=== PATIENT | female | born 1955 | race Caucasian/White ===

== ENCOUNTER 2024-03-09 08:54 | Emergency (ER) | payer MEDICARE ==
--- NOTE | 2024-03-09 09:44 | ED ---
Dizziness HPI - General Chief Complaint: Dizziness Stated Complaint: Nausea,Dizziness Time Seen by Provider: 03/09/24 09:11 Source: patient, RN notes reviewed Mode of arrival: ambulatory Limitations: no limitations - History of Present Illness Initial Comments: 68-year-old female presents emergency department chief complaint of nausea, weakness. She states that she has not felt well the last few weeks she states that she felt nauseated that she could not eat she states she was seen in urgent care was told that her thyroid function was off but states she is on medications for this. Patient denies any significant chest pain shortness of breath URI symptoms. 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 - Related Data Previous Rx's Medication Instructions Recorded Ketorolac [Toradol] 10 mg PO Q8HR #15 tab 03/09/24 Ondansetron Odt [Zofran Odt] 4 mg PO Q8HR PRN #14 tab 03/09/24 Tamsulosin [Flomax] 0.4 mg PO DAILY #7 cap 03/09/24 Allergies Allergy/AdvReac Type Severity Reaction Status Date / Time No Known Allergies Allergy Verified 03/09/24 09:14 Review of Systems ROS Statement: Those systems with pertinent positive or pertinent negative responses have been documented in the HPI. ROS Other: All systems not noted in ROS Statement are negative. Past Medical History Past Medical History: Hyperlipidemia, Thyroid Disorder History of Any Multi-Drug Resistant Organisms: None Reported Past Surgical History: Orthopedic Surgery, Tonsillectomy Additional Past Surgical History / Comment(s): ganglian cyst left wrist, plates rt leg Past Psychological History: No Psychological Hx Reported Smoking Status: Never smoker Past Alcohol Use History: Occasional Past Drug Use History: None Reported General Exam Limitations: no limitations General appearance: alert, in no apparent distress Head exam: Present: atraumatic, normocephalic, normal inspection Eye exam: Present: normal appearance, PERRL, EOMI. Absent: scleral icterus, conjunctival injection, periorbital swelling ENT exam: Present: normal exam, normal oropharynx, mucous membranes moist Neck exam: Present: normal inspection, full ROM. Absent: tenderness, meningismus, lymphadenopathy Respiratory exam: Present: normal lung sounds bilaterally. Absent: respiratory distress, wheezes, rales, rhonchi, stridor Cardiovascular Exam: Present: regular rate, normal rhythm, normal heart sounds. Absent: systolic murmur, diastolic murmur, rubs, gallop, clicks GI/Abdominal exam: Present: soft, normal bowel sounds. Absent: distended, tenderness, guarding, rebound, rigid Neurological exam: Present: alert, oriented X3, CN II-XII intact, reflexes normal. Absent: motor sensory deficit Course Vital Signs 03/09/24 03/09/24 03/09/24 09:10 12:30 13:16 Temperature 98.4 F Pulse Rate 99 Pulse Rate [ 69 Apical] Respiratory 16 18 18 Rate Blood Pressure 100/70 Blood Pressure 127/79 [Right Arm] O2 Sat by Pulse 97 Oximetry Medical Decision Making - Medical Decision Making Was pt. sent in by a medical professional or institution (, PA, IMAGING ENGINEER, urgent care, hospital, or [place] [facility] facility...) When possible be specific @ -No Did you speak to anyone other than the patient for history (EMS, parent, family, police, friend...)? What history was obtained from this source @ -No Did you review nursing and triage notes (agree or disagree)? Why? @ -I reviewed and agree with nursing and triage notes Were old charts reviewed (outside hosp., previous admission, EMS record, old EKG, old radiological studies, urgent care reports/EKG's, [place] health care facility records)? Report findings @ -No old charts were reviewed Differential Diagnosis (chest pain, altered mental status, abdominal pain women, abdominal pain men, vaginal bleeding, weakness, fever, dyspnea, syncope, headache, dizziness, GI bleed, back pain, seizure, CVA, palpatations, mental health, musculoskeletal)? @ -Differential Dizziness: Benign paroxysmal positional Vertigo, Menieres disease, otitis media, acoustic neuroma, vertebrobasilar insufficiency, cerebellar stroke, encephalitis, hyp ovolemic, arrhythmia, coronary artery syndrome, anemia, this is not meant to be an all-inclusive list EKG interpreted by me (3pts min.). @ -As above X-rays interpreted by me (1pt min.). @ -Chest x-ray shows no acute cardiopulmonary process CT interpreted by me (1pt min.). @ -CT abdomen pelvis showing evidence of hydronephrosis on the left from probable ureteral calculus U/S interpreted by me (1pt. min.). @ -None done What testing was considered but not performed or refused? (CT, X-rays, U/S, [place])? Why? @ -None What meds were considered but not given or refused? Why? @ -None Did you discuss the management of the patient with other professionals (professionals i.e. Dr., PA, IMAGING ENGINEER, lab, RT, psych nurse, rn social services, audio specialist, teacher, classification officer, top case assembler)? Give summary @ -No Was smoking cessation discussed for >3mins.? @ -No Was critical care preformed (if so, how long)? @ -No Were there social determinants of health that impacted care today? How? (Homelessness, low income, unemployed, alcoholism, drug addiction, transportation, low edu. Level, literacy, decrease access to med. care, usp, rehab)? @ -No Was there de-escalation of care discussed even if they declined (Discuss DNR or withdrawal of care, Hospice)? DNR status @ -No What co-morbidities impacted this encounter? (DM, HTN, Smoking, COPD, CAD, Cancer, CVA, ARF, Chemo, Hep., AIDS, mental health diagnosis, sleep apnea, morbid obesity)? @ -None Was patient admitted / discharged? Hospital course, mention meds given and route, prescriptions, significant lab abnormalities, going to OR and other pertinent info. @ -Discharge patient presented for dizziness, abdominal discomfort. Pain improved but noticed to have hematuria a CT was obtained showing hydronephrosis on the left and probable ureteral calculus. Patient did have some dizziness related from dehydration and orthostatic hypotension she was given 2 L of fluids which is resolved. She will follow-up with urology. Return parens discussed all questions were answered Undiagnosed new problem with uncertain prognosis? @ -No Drug Therapy requiring intensive monitoring for toxicity (Heparin, Nitro, Insulin, Cardizem)? @ -No Were any procedures done? @ -No Diagnosis/symptom? @ -Hydronephrosis left, ureteral calculus, dizziness, dehydration Acute, or Chronic, or Acute on Chronic? @ -Acute Uncomplicated (without systemic symptoms) or Complicated (systemic symptoms)? @ -Uncomplicated Side effects of treatment? @ -No Exacerbation, Progression, or Severe Exacerbation? @ -No Poses a threat to life or bodily function? How? (Chest pain, [place], NC, pneumonia, PE, COPD, DKA, ARF, appy, cholecystitis, CVA, Diverticulitis, Homicidal, Suicidal, threat to staff... and all critical care pts) @ -No - Lab Data Result diagrams: 03/09/24 10:03/09/24 10: Lab Results 03/09/24 03/09/24 03/09/24 Range/Units 10: 10: 10: WBC 3.0 L (3.8-10.6) k/uL RBC 4.65 (3.80-5.40) m/uL Hgb 13.7 (11.4-16.0) gm/dL Hct 43.0 (34.0-46.0) % MCV 92.5 (80.0-100.0) fL MCH 29.6 (25.0-35.0) pg MCHC 32.0 (31.0-37.0) g/dL RDW 12.8 (11.5-15.5) % Plt Count 110 L (150-450) k/uL MPV 7.9 Neutrophils % 56 % Lymphocytes % 29 % Monocytes % 10 % Eosinophils % 0 % Basophils % 1 % Neutrophils # 1.7 (1.3-7.7) k/uL Lymphocytes # 0.9 L (1.0-4.8) k/uL Monocytes # 0.3 (0-1.0) k/uL Eosinophils # 0.0 (0-0.7) k/uL Basophils # 0.0 (0-0.2) k/uL Sodium 134 L (137-145) mmol/L Potassium 3.6 (3.5-5.1) mmol/L Chloride 99 (98-107) mmol/L Carbon Dioxide 30 (22-30) mmol/L Anion Gap 5 mmol/L BUN 13 (7-17) mg/dL Creatinine 0.77 (0.52-1.04) mg/dL Est GFR (CKD-EPI)AfAm >90 (>60 ml/min/1.73 sqM) Est GFR (CKD-EPI)NonAf 81 (>60 ml/min/1.73 sqM) Glucose 103 H (74-99) mg/dL Plasma Lactic Acid Issac (0.7-2.0) mmol/L Calcium 9.0 (8.4-10.2) mg/dL Magnesium 1.9 (1.6-2.3) mg/dL Total Bilirubin 0.3 (0.2-1.3) mg/dL AST 28 (14-36) U/L ALT 18 (4-34) U/L Alkaline Phosphatase 66 (38-126) U/L Troponin I (0.000-0.034) ng/mL Total Protein 7.4 (6.3-8.2) g/dL Albumin 4.2 (3.5-5.0) g/dL Lipase 62 (23-300) U/L TSH 0.054 L (0.465-4.680) mIU/L Free T4 1.17 (0.78-2.19) ng/dL Free T3 pg/mL 2.30 (2.30-4.20) pg/mL Urine Color Light Yellow Urine Appearance Clear (Clear) Urine pH 6.0 (5.0-8.0) Ur Specific [place] 1.012 (1.001-1.035) Urine Protein Negative (Negative) Urine Glucose (UA) Negative (Negative) Urine Ketones Negative (Negative) Urine Blood Moderate H (Negative) Urine Nitrite Negative (Negative) Urine Bilirubin Negative (Negative) Urine Urobilinogen <2.0 (<2.0) mg/dL Ur Leukocyte Esterase Negative (Negative) Urine RBC 41 H (0-5) /hpf Urine WBC 1 (0-5) /hpf Ur Squamous Epith Cells 1 (0-4) /hpf Urine Mucus Rare H (None) /hpf Influenza Type A (PCR) (Not Detectd) Influenza Type B (PCR) (Not Detectd) RSV (PCR) (Not Detectd) SARS-CoV-2 (PCR) (Not Detectd) 03/09/24 03/09/24 03/09/24 Range/Units 10:28 10:28 10:28 WBC (3.8-10.6) k/uL RBC (3.80-5.40) m/uL Hgb (11.4-16.0) gm/dL Hct (34.0-46.0) % MCV (80.0-100.0) fL MCH (25.0-35.0) pg MCHC (31.0-37.0) g/dL RDW (11.5-15.5) % Plt Count (150-450) k/uL MPV Neutrophils % % Lymphocytes % % Monocytes % % Eosinophils % % Basophils % % Neutrophils # (1.3-7.7) k/uL Lymphocytes # (1.0-4.8) k/uL Monocytes # (0-1.0) k/uL Eosinophils # (0-0.7) k/uL Basophils # (0-0.2) k/uL Sodium (137-145) mmol/L Potassium (3.5-5.1) mmol/L Chloride (98-107) mmol/L Carbon Dioxide (22-30) mmol/L Anion Gap mmol/L BUN (7-17) mg/dL Creatinine (0.52-1.04) mg/dL Est GFR (CKD-EPI)AfAm (>60 ml/min/1.73 sqM) Est GFR (CKD-EPI)NonAf (>60 ml/min/1.73 sqM) Glucose (74-99) mg/dL Plasma Lactic Acid Issac 1.1 (0.7-2.0) mmol/L Calcium (8.4-10.2) mg/dL Magnesium (1.6-2.3) mg/dL Total Bilirubin (0.2-1.3) mg/dL AST (14-36) U/L ALT (4-34) U/L Alkaline Phosphatase (38-126) U/L Troponin I <0.012 (0.000-0.034) ng/mL Total Protein (6.3-8.2) g/dL Albumin (3.5-5.0) g/dL Lipase (23-300) U/L TSH (0.465-4.680) mIU/L Free T4 (0.78-2.19) ng/dL Free T3 pg/mL (2.30-4.20) pg/mL Urine Color Urine Appearance (Clear) Urine pH (5.0-8.0) Ur Specific [place] (1.001-1.035) Urine Protein (Negative) Urine Glucose (UA) (Negative) Urine Ketones (Negative) Urine Blood (Negative) Urine Nitrite (Negative) Urine Bilirubin (Negative) Urine Urobilinogen (<2.0) mg/dL Ur Leukocyte Esterase (Negative) Urine RBC (0-5) /hpf Urine WBC (0-5) /hpf Ur Squamous Epith Cells (0-4) /hpf Urine Mucus (None) /hpf Influenza Type A (PCR) Not Detected (Not Detectd) Influenza Type B (PCR) Not Detected (Not Detectd) RSV (PCR) Not Detected (Not Detectd) SARS-CoV-2 (PCR) Not Detected (Not Detectd) - EKG Data -: EKG Interpreted by Me EKG Comments: EKG performed at 10: 03 sinus rhythm rate of 79 DC 154 QRS 96 QT/QTc 370/404 Disposition Clinical Impression: Nausea, Dehydration, Hematuria, Ureteral calculi Disposition: HOME SELF-CARE Condition: Stable Instructions (If sedation given, give patient instructions): Kidney Stones (ED) Additional Instructions: Please return to the Emergency Department if symptoms worsen or any other concerns. Prescriptions: Tamsulosin [Flomax] 0.4 mg PO DAILY #7 cap Ketorolac [Toradol] 10 mg PO Q8HR #15 tab Ondansetron Odt [Zofran Odt] 4 mg PO Q8HR PRN #14 tab PRN Reason: Nausea Is patient prescribed a controlled substance at d/c from ED?: No Referrals: Jose Byrd DO [Primary Care Provider] - 1-2 days Last Sams MD [STAFF PHYSICIAN] - 1-2 days Time of Disposition: 13:12
[2024-03-09 09:57] VITALS: TEMP 98.4
[2024-03-09] MEDS: SODIUM CHLORIDE 0.9% 1,000 ML IV STA (10:31)
[2024-03-09] MEDS: ONDANSETRON 4 MG/2 ML VIAL IVP STA (10:31)
[2024-03-09 10:40] LABS: Basophils % (A) 1 %; Eosinophils % (A) 0 %; HGB 13.7 gm/dL (11.4-16.0); Lymphocytes # (A) 0.9 k/uL (1.0-4.8); Lymphocytes % (A) 29 %; MCH 29.6 pg (25.0-35.0); MCV 92.5 fL (80.0-100.0); Mean Platelet Volume 7.9; Monocytes # (A) 0.3 k/uL (0-1.0); Monocytes % (A) 10 %; Neutrophils # (A) 1.7 k/uL (1.3-7.7); Neutrophils % (A) 56 %; Platelet Count 110 k/uL (150-450); RBC 4.65 m/uL (3.80-5.40); RDW 12.8 % (11.5-15.5)
[2024-03-09 10:58] LABS: ALT 18 U/L (4-34); AST 28 U/L (14-36); African American GFR (CKD) >90 (>60 ml/min/1.73 sqM); Albumin 4.2 g/dL (3.5-5.0); Alkaline Phosphatase 66 U/L (38-126); Anion Gap 5 mmol/L; Blood Urea Nitrogen 13 mg/dL (7-17); Carbon Dioxide 30 mmol/L (22-30); Chloride 99 mmol/L (98-107); Glucose 103 mg/dL (74-99); Lipase 62 U/L (23-300); Magnesium 1.9 mg/dL (1.6-2.3); Non-African American GFR(CKD) 81 (>60 ml/min/1.73 sqM); Potassium 3.6 mmol/L (3.5-5.1); Sodium 134 mmol/L (137-145); Total Bilirubin 0.3 mg/dL (0.2-1.3); Total Protein 7.4 g/dL (6.3-8.2)
[2024-03-09 11:01] LABS: Appearance,Urine Clear (Clear); Bilirubin,Urine Negative (Negative); Blood,Urine Moderate (Negative); Color,Urine Light Yellow; Glucose,Urine (UA) Negative (Negative); Ketones,Urine Negative (Negative); Leukocyte Esterase,Urine Negative (Negative); Mucus,Urine Rare /hpf; Nitrite,Urine Negative (Negative); Protein,Urine Negative (Negative); RBC,Urine 41 /hpf (0-5); Specific Gravity,Urine 1.012 (1.001-1.035); Squamous Epithelial Cell,Urine 1 /hpf (0-4); Urobilinogen,Urine <2.0 mg/dL (<2.0); WBC,Urine 1 /hpf (0-5)
--- NOTE | 2024-03-09 11:05 | XR ---
EXAMINATION TYPE: XR chest 2V DATE OF EXAM: 03/09/2024 10:57 AM CLINICAL INDICATION:Female, 68 years old with history of weakness; COMPARISON: None TECHNIQUE: XR chest 2V Frontal and lateral views of the chest. FINDINGS: Lungs/Pleura: There is flattening of the diaphragm with increased lucency of the lungs. No evidence o f pneumothorax, pleural effusion or focal consolidation. Pulmonary vascularity: Unremarkable. Heart/mediastinum: Cardiomediastinal silhouette is unremarkable. Musculoskeletal: No acute osseous pathology. IMPRESSION: 1. No acute cardiopulmonary disease process. 2. COPD changes.
[2024-03-09 11:55] LABS: T4, Free (Free Thyroxine) 1.17 ng/dL (0.78-2.19)
[2024-03-09] MEDS: SODIUM CHLORIDE 0.9% 1,000 ML IV ONE (12:43)
--- NOTE | 2024-03-09 12:50 | CT ---
EXAMINATION TYPE: CT abdomen pelvis w con CT DLP: 556.9 mGycm, Automated exposure control for dose reduction was used. DATE OF EXAM: 03/09/2024 12:20 PM COMPARISON: None. CLINICAL INDICATION:Female, 68 years old with history of Hematuria weakness nausea; Hematuria weaknes s nausea TECHNIQUE: Axial CT abdomen pelvis w con;Sagittal and coronal reformats were created on a separate w orkstation. Contrast used:100ml mL of Isovue 300 with IV Contrast, (none if empty) Oral contrast used: without Oral Contrast (none if empty) FINDINGS: LOWER CHEST: Unremarkable ABDOMEN LIVER: Unremarkable GALLBLADDER AND BILE DUCTS: Unremarkable. PANCREAS: Unremarkable. SPLEEN: Unremarkable. ADRENAL GLANDS: Unremarkable. KIDNEYS AND URETERS: No evidence of renal calculus. Cannot exclude mild left hydronephrosis. Numerou s pelvic phleboliths. Cannot exclude that one of these tiny phlebolith versus a urolith. The ureters are unremarkable. PELVIS BLADDER: Unremarkable REPRODUCTIVE: Unremarkable. ABDOMEN & PELVIS STOMACH AND BOWEL: No evidence of bowel obstruction. PERITONEUM/RETROPERITONEUM: No evidence of pneumoperitoneum or free fluid. VASCULATURE: No evidence of aortic aneurysm. MUSCULOSKELETAL: No acute osseous abnormalities. Anterolisthesis of L5 on S1. Multilevel degenerative disc disease and endplate spondylosis. LYMPH NODES: No gross evidence for lymphadenopathy. SOFT TISSUE/ABDOMINAL WALL: Unremarkable IMPRESSION: 1. Possible mild left hydronephrosis. Numerous pelvic phleboliths. Cannot entirely exclude that one of these is a small urolith.
[2024-03-09 13:40] VITALS: BP 127/79; PULSE 69; RESP 18
== END 2024-03-09 13:29 | disposition home or self-care (01) ==
LOC: EC 08:54
DX: E86.0 Dehydration (principal); R31.9 Hematuria, unspecified; N13.2 Hydronephrosis with renal and ureteral calculous obstruction; R42 Dizziness and giddiness
CPT/HCPCS: 36415; 93005; 84439; 84481; 80053; 83605; 83690; 83735; 84443; 84484; 85025; 81001; 87636; 71046; 74177; 99285; 96374; 96361 ×2; J2405; Q9967

== ENCOUNTER 2024-03-14 07:18 | Emergency (ER) | payer MEDICARE ==
[2024-03-14] MEDS: SODIUM CHLORIDE 0.9% 1,000 ML IV STA (08:13)
[2024-03-14] MEDS: METOCLOPRAMIDE 5 MG/ML 2 ML VIAL IVP STA (08:14)
[2024-03-14] MEDS: PANTOPRAZOLE 40 MG/10 ML VIAL IVP STA (08:16)
--- NOTE | 2024-03-14 08:26 | ED ---
General Adult HPI - General Chief complaint: Dizziness Stated complaint: Dizziness, nausea Time Seen by Provider: 03/14/24 07:56 Source: patient, RN notes reviewed, old records reviewed Mode of arrival: wheelchair Limitations: no limitations - History of Present Illness Initial comments: Patient is a 68-year-old female presents emergency department complaining of persistent nausea as well as lightheadedness when standing. States it has been ongoing for a week. Feels weak. States she has persistent nausea and has minimal oral intake. Denies chest pain or shortness of breath. Denies any obvious abdominal pain. Denies any injuries or headaches. Is currently being worked up for Sjogren's syndrome and is prediabetic. Also has a history of hyperlipidemia. Denies any fevers or chills or cough. Has chronic hematuria and was diagnosed with a possible left kidney stone on Tuesday when she was here. Workup at this time otherwise was unremarkable except for positive orthostatics. Presents for further evaluation at this time. Denies any new symptoms, just persistent symptoms. Describes the lightheadedness dizziness as a head heavy sensation when standing that improves when sitting down. - Related Data Home Medications Medication Instructions Recorded Confirmed Levothyroxine Sodium [Tirosint] 62.5 mcg PO DAILY 03/14/24 03/14/24 Liothyronine Sodium [Cytomel] 5 mcg PO DAILY 03/14/24 03/14/24 Naltrexone HCl [Naltrex] 4.5 mg PO HS 03/14/24 03/14/24 Progesterone, Micronized 100 mg PO HS 03/14/24 03/14/24 [Progesterone] estradioL [Vivelle-Dot 0.0375 MG] 1 patch TOPICAL WESA 03/14/24 03/14/24 Previous Rx's Medication Instructions Recorded Ketorolac [Toradol] 10 mg PO Q8HR #15 tab 03/09/24 Ondansetron Odt [Zofran Odt] 4 mg PO Q8HR PRN #14 tab 03/09/24 Tamsulosin [Flomax] 0.4 mg PO DAILY #7 cap 03/09/24 Metoclopramide [Reglan] 5 mg PO BID PRN 5 Days #10 tab 03/14/24 Allergies Allergy/AdvReac Type Severity Reaction Status Date / Time No Known Allergies Allergy Verified 03/14/24 10:41 Review of Systems ROS Statement: Those systems with pertinent positive or pertinent negative responses have been documented in the HPI. Review of Systems: CONST: Denies fever EYES: Denies blurry vision ENT: Denies nasal congestion C/V: Denies Chest pain RESP: Denies shortness of breath GI: Endorses nausea : Denies dysuria SKIN: Denies rash. MSK: Denies joint pain. NEURO: Endorses lightheadedness ROS Other: All systems not noted in ROS Statement are negative. Past Medical History Past Medical History: Hyperlipidemia, Thyroid Disorder History of Any Multi-Drug Resistant Organisms: None Reported Past Surgical History: Orthopedic Surgery, Tonsillectomy Additional Past Surgical History / Comment(s): ganglian cyst left wrist, plates rt leg Past Psychological History: No Psychological Hx Reported Smoking Status: Never smoker Past Alcohol Use History: Occasional Past Drug Use History: None Reported General Exam - General Exam Comments Initial Comments: General: Appears in no acute distress. HEAD: Normal with no signs of head trauma. EYES: PERRLA, EOMI, conjunctiva normal, no discharge. ENT: Hearing grossly intact, normal oropharynx.. Dry mucous membranes RESPIRATORY: Clear breath sounds bilaterally. No wheezes, rales, or rhonchi. C/V: Regular rate and rhythm. S1 and S2 auscultated, no edema, peripheral pulses 2+ and intact throughout ABD: Abd is soft, nontender, nondistended EXT: Normal range of motion, no obvious deformity SKIN: No rashes or lesions observed on exposed skin. NEURO: Alert and oriented x 4. Cranial nerves II-XII intact. No focal sensory or strength deficits. GCS of 15. NIH of 0. PERC negative. Limitations: no limitations Course Vital Signs 03/14/24 03/14/24 03/14/24 07:33 08:01 08:03 Temperature 98.2 F Pulse Rate 99 Pulse Rate [ 70 84 Rn Concurrent Review ] Respiratory 16 Rate Blood Pressure 116/78 Blood Pressure 126/81 [Right Arm Sitting] Blood Pressure [Right Arm Standing] Blood Pressure 138/80 [Right Arm Supine] O2 Sat by Pulse 100 Oximetry 03/14/24 03/14/24 08:05 10:02 Temperature 97.9 F Pulse Rate 68 Pulse Rate [ 99 Rn Concurrent Review ] Respiratory 18 Rate Blood Pressure 127/73 Blood Pressure [Right Arm Sitting] Blood Pressure 113/69 [Right Arm Standing] Blood Pressure [Right Arm Supine] O2 Sat by Pulse 99 Oximetry Medical Decision Making - Medical Decision Making Was pt. sent in by a medical professional or institution (JAQUELINE Aguirre, [employer], urgent care, hospital, or intermediate...) When possible be specific @ -No Did you speak to anyone other than the patient for history (EMS, parent, family, police, friend...)? What history was obtained from this source @ -No Did you review nursing and triage notes (agree or disagree)? Why? @ -I reviewed and agree with nursing and triage notes Were old charts reviewed (outside hosp., previous admission, EMS record, old EKG, old radiological studies, urgent care reports/EKG's, intermediate records)? Report findings @ -Chart reviewed from recent visit on March 09, 2024, including CT imaging and labs which were remarkable for possible left-sided kidney stone. No other obvious acute findings. Differential Diagnosis (chest pain, altered mental status, abdominal pain women, abdominal pain men, vaginal bleeding, weakness, fever, dyspnea, syncope, headache, dizziness, GI bleed, back pain, seizure, CVA, palpatations, mental health, musculoskeletal)? @ -Differential Weakness: Hypoglycemia, shock, sepsis, hyponatremia, anemia, infection, DE, ETOH, adverse medicine reaction, overdose, stroke, this is not meant to be an all-inclusive list. EKG interpreted by me (3pts min.). @ -As above X-rays interpreted by me (1pt min.). @ -Chest x-ray reveals no obvious acute cardiopulmonary process. Chest x-ray reveals no obvious acute cardiopulmonary process. CT interpreted by me (1pt min.). @ -CT brain reveals no obvious acute intracranial process. U/S interpreted by me (1pt. min.). @ -Ultrasound of the kidneys and bladder shows no obvious acute process, redemonstrated findings from Tuesday. What testing was considered but not performed or refused? (CT, X-rays, U/S, labs)? Why? @ -None What meds were considered but not given or refused? Why? @ -None Did you discuss the management of the patient with other professionals (professionals i.e. JAQUELINE Aguirre, [employer], lab, RT, psych nurse, certified social workers in health care, pigment grinder, teacher, aoc operations intelligence officer, briefcase sewer)? Give summary @ -No Was smoking cessation discussed for >3mins.? @ -No Was critical care preformed (if so, how long)? @ -No Were there social determinants of health that impacted care today? How? (Homelessness, low income, unemployed, alcoholism, drug addiction, tra nsportation, low edu. Level, literacy, decrease access to med. care, prison, rehab)? @ -No Was there de-escalation of care discussed even if they declined (Discuss DNR or withdrawal of care, Hospice)? DNR status @ -No What co-morbidities impacted this encounter? (DM, HTN, Smoking, COPD, CAD, Cancer, CVA, ARF, Chemo, Hep., AIDS, mental health diagnosis, sleep apnea, morbid obesity)? @ -None Was patient admitted / discharged? Hospital course, mention meds given and route, prescriptions, significant lab abnormalities, going to OR and other pertinent info. @ -Patient is a 68-year-old female presents emergency department with weakness, lightheadedness. Has been persistent for over a week. Has had decreased oral intake at home over this period of time due to the primary complaint of nausea. Orthostatic vital signs positive. Signs otherwise within acceptable limits at this time. No obvious acute complaints at this time. Evaluation unremarkable other than obvious findings of dehydration. We will obtain repeat workup and labs as well as ultrasound of the kidneys to evaluate for any worsening kidney stones, CT brain, as well as chest x-ray. Patient was in agreement this plan. She will be given IV fluids, Reglan, Protonix. EKG shows no signs of acute ischemia. Patient's laboratory studies are all within acceptable limits. Small amount of blood present in the patient's urine. Imaging is unremarkable and negative for any obvious acute process. I updated the patient. We discussed the results of her workup. I did offer observation admission as this is the second visit for identical complaints however she states her nausea is more better controlled with the Reglan than the Zofran. She does have follow-up with her PCP tomorrow morning. With the negative workup, and patient feeling improved on ambulation following IV fluids, I do believe it is reasonable for her to be discharged home. She was in agreement with this plan. Strict return precautions discussed. I will provide the patient with a prescription for Reglan. I instructed the patient to follow up with their PCP in the next 1-3 days.. I explained that the patient should return to the emergency department if they experience any worsening symptoms. Strict return precautions were discussed with the patient. The patient expressed understanding of these instructions. I answered all questions that the patient had. The patient was discharged home in good condition with their prescriptions and follow up information. Undiagnosed new problem with uncertain prognosis? @ -No Drug Therapy requiring intensive monitoring for toxicity (Heparin, Nitro, Insulin, Cardizem)? @ -No Were any procedures done? @ -No Diagnosis/symptom? @ -Lightheadedness, nausea Acute, or Chronic, or Acute on Chronic? @ -Acute on chronic Uncomplicated (without systemic symptoms) or Complicated (systemic symptoms)? @ -Complicated Side effects of treatment? @ -None Exacerbation, Progression, or Severe Exacerbation] @ -No Poses a threat to life or bodily function? @ -Unlikely - Lab Data Result diagrams: 03/14/24 08:19 03/14/24 08:19 Lab Results 03/14/24 03/14/24 03/14/24 Range/Units 08:19 08:19 08:19 WBC 3.7 L (3.8-10.6) k/uL RBC 4.64 (3.80-5.40) m/uL Hgb 13.5 (11.4-16.0) gm/dL Hct 42.4 (34.0-46.0) % MCV 91.3 (80.0-100.0) fL MCH 29.0 (25.0-35.0) pg MCHC 31.7 (31.0-37.0) g/dL RDW 12.6 (11.5-15.5) % Plt Count 147 L (150-450) k/uL MPV 8.2 Neutrophils % 56 % Lymphocytes % 32 % Monocytes % 8 % Eosinophils % 1 % Basophils % 1 % Neutrophils # 2.1 (1.3-7.7) k/uL Lymphocytes # 1.2 (1.0-4.8) k/uL Monocytes # 0.3 (0-1.0) k/uL Eosinophils # 0.0 (0-0.7) k/uL Basophils # 0.0 (0-0.2) k/uL PT 10.7 (10.0-12.5) sec INR 1.0 (<1.2) APTT 24.6 (22.0-30.0) sec Sodium 137 (137-145) mmol/L Potassium 4.1 (3.5-5.1) mmol/L Chloride 103 (98-107) mmol/L Carbon Dioxide 26 (22-30) mmol/L Anion Gap 8 mmol/L BUN 15 (7-17) mg/dL Creatinine 0.79 (0.52-1.04) mg/dL Est GFR (CKD-EPI)AfAm >90 (>60 ml/min/1.73 sqM) Est GFR (CKD-EPI)NonAf 79 (>60 ml/min/1.73 sqM) Glucose 107 H (74-99) mg/dL Plasma Lactic Acid Issac (0.7-2.0) mmol/L Calcium 9.3 (8.4-10.2) mg/dL Total Bilirubin 0.5 (0.2-1.3) mg/dL AST 23 (14-36) U/L ALT 15 (4-34) U/L Alkaline Phosphatase 67 (38-126) U/L Total Protein 7.2 (6.3-8.2) g/dL Albumin 4.1 (3.5-5.0) g/dL Amylase 54 (30-110) U/L Lipase 61 (23-300) U/L TSH 0.614 (0.465-4.680) mIU/L Urine Color Urine Appearance (Clear) Urine pH (5.0-8.0) Ur Specific [place] (1.001-1.035) Urine Protein (Negative) Urine Glucose (UA) (Negative) Urine Ketones (Negative) Urine Blood (Negative) Urine Nitrite (Negative) Urine Bilirubin (Negative) Urine Urobilinogen (<2.0) mg/dL Ur Leukocyte Esterase (Negative) Urine RBC (0-5) /hpf Urine WBC (0-5) /hpf Ur Squamous Epith Cells (0-4) /hpf 03/14/24 03/14/24 Range/Units 08:19 08:19 WBC (3.8-10.6) k/uL RBC (3.80-5.40) m/uL Hgb (11.4-16.0) gm/dL Hct (34.0-46.0) % MCV (80.0-100.0) fL MCH (25.0-35.0) pg MCHC (31.0-37.0) g/dL RDW (11.5-15.5) % Plt Count (150-450) k/uL MPV Neutrophils % % Lymphocytes % % Monocytes % % Eosinophils % % Basophils % % Neutrophils # (1.3-7.7) k/uL Lymphocytes # (1.0-4.8) k/uL Monocytes # (0-1.0) k/uL Eosinophils # (0-0.7) k/uL Basophils # (0-0.2) k/uL PT (10.0-12.5) sec INR (<1.2) APTT (22.0-30.0) sec Sodium (137-145) mmol/L Potassium (3.5-5.1) mmol/L Chloride (98-107) mmol/L Carbon Dioxide (22-30) mmol/L Anion Gap mmol/L BUN (7-17) mg/dL Creatinine (0.52-1.04) mg/dL Est GFR (CKD-EPI)AfAm (>60 ml/min/1.73 sqM) Est GFR (CKD-EPI)NonAf (>60 ml/min/1.73 sqM) Glucose (74-99) mg/dL Plasma Lactic Acid Issac 1.1 (0.7-2.0) mmol/L Calcium (8.4-10.2) mg/dL Total Bilirubin (0.2-1.3) mg/dL AST (14-36) U/L ALT (4-34) U/L Alkaline Phosphatase (38-126) U/L Total Protein (6.3-8.2) g/dL Albumin (3.5-5.0) g/dL Amylase (30-110) U/L Lipase (23-300) U/L TSH (0.465-4.680) mIU/L Urine Color Colorless Urine Appearance Clear (Clear) Urine pH 6.5 (5.0-8.0) Ur Specific [place] 1.007 (1.001-1.035) Urine Protein Negative (Negative) Urine Glucose (UA) Negative (Negative) Urine Ketones Negative (Negative) Urine Blood Small H (Negative) Urine Nitrite Negative (Negative) Urine Bilirubin Negative (Negative) Urine Urobilinogen <2.0 (<2.0) mg/dL Ur Leukocyte Esterase Negative (Negative) Urine RBC 4 (0-5) /hpf Urine WBC 1 (0-5) /hpf Ur Squamous Epith Cells 1 (0-4) /hpf - EKG Data -: EKG Interpreted by Me EKG Comments: 12-lead Electrocardiogram Interpretation Note EKG was reviewed and interpreted by myself. 12-lead ECG performed at 0831 is interpreted by me as revealing normal sinus rhythm at a rate of 70 beats per minute. [place] is normal. HI interval is 165 ms, QRS durations 96 ms, QTc is 430 ms.. There were no ST or T wave abnormalities to suggest myocardial ischemia or injury. R wave progression across the precordium was satisfactory. By my interpretation this EKG is non-diagnostic for acute ischemia. Disposition Clinical Impression: Lightheadedness, Nausea Disposition: ADMITTED IP TO THIS HOSP Condition: Good Instructions (If sedation given, give patient instructions): Dizziness (ED) Prescriptions: Metoclopramide [Reglan] 5 mg PO BID PRN 5 Days #10 tab PRN Reason: Nausea Is patient prescribed a controlled substance at d/c from ED?: No Referrals: Jose Byrd DO [Primary Care Provider] - 1-2 days Time of Disposition: 10:48
[2024-03-14 08:29] LABS: Basophils % (A) 1 %; Eosinophils % (A) 1 %; HCT 42.4 % (34.0-46.0); HGB 13.5 gm/dL (11.4-16.0); Lymphocytes # (A) 1.2 k/uL (1.0-4.8); Lymphocytes % (A) 32 %; MCHC 31.7 g/dL (31.0-37.0); MCV 91.3 fL (80.0-100.0); Mean Platelet Volume 8.2; Monocytes # (A) 0.3 k/uL (0-1.0); Monocytes % (A) 8 %; Neutrophils # (A) 2.1 k/uL (1.3-7.7); Neutrophils % (A) 56 %; Platelet Count 147 k/uL (150-450); RBC 4.64 m/uL (3.80-5.40); RDW 12.6 % (11.5-15.5); WBC 3.7 k/uL (3.8-10.6)
[2024-03-14 08:40] LABS: ALT 15 U/L (4-34); AST 23 U/L (14-36); African American GFR (CKD) >90 (>60 ml/min/1.73 sqM); Albumin 4.1 g/dL (3.5-5.0); Alkaline Phosphatase 67 U/L (38-126); Amylase 54 U/L (30-110); Anion Gap 8 mmol/L; Blood Urea Nitrogen 15 mg/dL (7-17); Calcium 9.3 mg/dL (8.4-10.2); Carbon Dioxide 26 mmol/L (22-30); Chloride 103 mmol/L (98-107); Glucose 107 mg/dL (74-99); Lipase 61 U/L (23-300); Non-African American GFR(CKD) 79 (>60 ml/min/1.73 sqM); Potassium 4.1 mmol/L (3.5-5.1); Sodium 137 mmol/L (137-145); Total Bilirubin 0.5 mg/dL (0.2-1.3); Total Protein 7.2 g/dL (6.3-8.2)
[2024-03-14 08:44] LABS: Partial Thromboplastin Time 24.6 sec (22.0-30.0); Prothrombin Time 10.7 sec (10.0-12.5)
--- NOTE | 2024-03-14 08:52 | CT ---
EXAMINATION TYPE: CT brain wo con CT DLP: 1124.9 mGycm, Automated exposure control for dose reduction was used. DATE OF EXAM: 03/14/2024 8:45 AM COMPARISON: None. CLINICAL INDICATION:Female, 68 years old with history of dizzy, Dizziness TECHNIQUE: Brain: Axial CT images of the brain were obtained with coronal and sagittal reformats created and rev iewed. Contrast used: None. Oral contrast used: None. FINDINGS: Brain: Extra-axial spaces: No abnormal extra-axial fluid collections. Ventricular system: Within normal limits Cerebral parenchyma: No acute intraparenchymal hemorrhage or mass effect. The moise-white junction is well differentiated. Cerebellum: Unremarkable. Mass effect: No evidence of midline shift. Intracranial vasculature: Atherosclerotic calcifications of the intracranial vessels. Soft tissues: Normal. Calvarium/osseous structures: No depressed skull fracture. Paranasal sinuses and mastoid air cells: Mild scattered paranasal sinus disease. Visualized orbits: Bilateral aphakia IMPRESSION: No acute intracranial process.
--- NOTE | 2024-03-14 10:02 | US ---
EXAMINATION TYPE: US kidneys/renal and bladder DATE OF EXAM: 03/14/2024 COMPARISON: CT 03/09/2024 CLINICAL INDICATION: Female, 68 years old with history of eval for hydronephrosis; Pain left side x 1 .5 weeks. EXAM MEASUREMENTS: Right Kidney: 12.0 x 5.6 x 4.2 cm Left Kidney: 11.2 x 5.9 x 5.2 cm Right Kidney: Mild pelvicaliectasis Left Kidney: Mild hydronephrosis. Bladder: Appears wnl Bilateral Jets seen: No IMPRESSION: Mild left-sided hydronephrosis and slight fullness of the right renal collecting system. Similar to kolton pulido's 03/09/2024 CT.
[2024-03-14 10:16] LABS: Appearance,Urine Clear (Clear); Bilirubin,Urine Negative (Negative); Blood,Urine Small (Negative); Color,Urine Colorless; Glucose,Urine (UA) Negative (Negative); Ketones,Urine Negative (Negative); Leukocyte Esterase,Urine Negative (Negative); Nitrite,Urine Negative (Negative); PH, Urine 6.5 (5.0-8.0); Protein,Urine Negative (Negative); RBC,Urine 4 /hpf (0-5); Specific Gravity,Urine 1.007 (1.001-1.035); Squamous Epithelial Cell,Urine 1 /hpf (0-4); Urobilinogen,Urine <2.0 mg/dL (<2.0); WBC,Urine 1 /hpf (0-5)
--- NOTE | 2024-03-14 10:28 | XR ---
EXAMINATION TYPE: XR chest 1V portable DATE OF EXAM: 03/14/2024 HISTORY: Shortness of breath. COMPARISON: 03/09/2024 TECHNIQUE: Single view of the chest is submitted. FINDINGS: Demonstrated are scattered senescent parenchymal change. There is no evidence for focal infiltrate. The heart is stable. Hilar and mediastinal structures are within normal limits. Degenerative changes are seen of the dorsal spine. IMPRESSION: 1. Chronic changes without evidence for acute pulmonary disease.
[2024-03-14 10:52] VITALS: BP 127/73; PULSE 68; RESP 18; TEMP 97.9
== END 2024-03-14 10:56 | disposition other institution (70) ==
LOC: EC 07:18
DX: R42 Dizziness and giddiness (principal); R11.0 Nausea
CPT/HCPCS: 36415; 93005; 80053; 82150; 83605; 83690; 84443; 85025; 85610; 85730; 81001; 71045; 76770; 70450; 99285; 96374; 96375; 96361; J2765; C9113

== ENCOUNTER 2024-03-15 06:28 | Observation (INO) | payer MEDICARE ==
[2024-03-15 07:23] LABS: Basophils # (A) 0.1 k/uL (0-0.2); Basophils % (A) 1 %; Eosinophils % (A) 1 %; HCT 41.6 % (34.0-46.0); HGB 13.7 gm/dL (11.4-16.0); Lymphocytes # (A) 0.9 k/uL (1.0-4.8); Lymphocytes % (A) 16 %; MCH 29.8 pg (25.0-35.0); MCHC 32.9 g/dL (31.0-37.0); MCV 90.5 fL (80.0-100.0); Mean Platelet Volume 8.1; Monocytes # (A) 0.2 k/uL (0-1.0); Monocytes % (A) 4 %; Neutrophils # (A) 4.6 k/uL (1.3-7.7); Neutrophils % (A) 78 %; Platelet Count 172 k/uL (150-450); RBC 4.59 m/uL (3.80-5.40); RDW 12.5 % (11.5-15.5); WBC 5.9 k/uL (3.8-10.6)
[2024-03-15 07:34] LABS: ALT 16 U/L (4-34); AST 21 U/L (14-36); African American GFR (CKD) >90 (>60 ml/min/1.73 sqM); Albumin 4.1 g/dL (3.5-5.0); Alkaline Phosphatase 69 U/L (38-126); Anion Gap 8 mmol/L; Blood Urea Nitrogen 12 mg/dL (7-17); Calcium 9.1 mg/dL (8.4-10.2); Carbon Dioxide 23 mmol/L (22-30); Chloride 107 mmol/L (98-107); Glucose 115 mg/dL (74-99); Lipase 52 U/L (23-300); Non-African American GFR(CKD) >90 (>60 ml/min/1.73 sqM); Phosphorus 2.9 mg/dL (2.5-4.5); Potassium 4.4 mmol/L (3.5-5.1); Sodium 138 mmol/L (137-145); Total Bilirubin 0.5 mg/dL (0.2-1.3); Total Protein 7.2 g/dL (6.3-8.2)
[2024-03-15] MEDS: SODIUM CHLORIDE 0.9% 1,000 ML IV STA (07:44)
[2024-03-15] MEDS: SODIUM CHLORIDE 0.9% 500 ML 500 ML IV STA (07:44)
[2024-03-15 07:45] LABS: Appearance,Urine Cloudy (Clear); Bacteria,Urine Rare /hpf; Bilirubin,Urine Negative (Negative); Blood,Urine Small (Negative); Color,Urine Colorless; Glucose,Urine (UA) Negative (Negative); Ketones,Urine Negative (Negative); Leukocyte Esterase,Urine Large (Negative); Mucus,Urine Rare /hpf; Nitrite,Urine Negative (Negative); Protein,Urine Negative (Negative); RBC,Urine 6 /hpf (0-5); Specific Gravity,Urine 1.007 (1.001-1.035); Squamous Epithelial Cell,Urine 8 /hpf (0-4); Urobilinogen,Urine <2.0 mg/dL (<2.0); WBC,Urine 3 /hpf (0-5)
[2024-03-15] MEDS: FAMOTIDINE 20 MG TAB PO STA (07:45)
[2024-03-15] MEDS: PROCHLORPERAZINE 10 MG TAB PO STA (07:49)
[2024-03-15] MEDS ORDERED: NALOXONE 0.4 MG/ML 1 ML VIAL IV PRN (09:44)
--- NOTE | 2024-03-15 09:44 | ED ---
General Adult HPI - General Chief complaint: Nausea/Vomiting/Diarrhea Stated complaint: NVD Time Seen by Provider: 03/15/24 06:43 Source: patient, RN notes reviewed, old records reviewed Mode of arrival: ambulatory Limitations: no limitations - History of Present Illness Initial comments: 68-year-old female presents emergency department complaint of nausea vomiting issues. Patient states this has been going on for over 2 weeks. Patient has been seen multiple times in ER with improvement while in the ER but no relief at home with oral medications she initially was found to be orthostatic hypotension, felt to have a kidney stone and dehydration symptoms have only worsened. She says she still has a residual cough. No reported fever she does admit that she has had a 50 pound weight loss in last year but states this is due to dietary modification. She does have a history of hypothyroidism. Patient remains to have blood in her urine at times. She denies any chest pain shortness of breath she states she had a colonoscopy few years ago. - Related Data Home Medications Medication Instructions Recorded Confirmed Levothyroxine Sodium [Tirosint] 62.5 mcg PO DAILY 03/14/24 03/15/24 Liothyronine Sodium [Cytomel] 5 mcg PO DAILY 03/14/24 03/15/24 Naltrexone HCl [Naltrex] 4.5 mg PO HS 03/14/24 03/15/24 Progesterone, Micronized 100 mg PO HS 03/14/24 03/15/24 [Progesterone] estradioL [Vivelle-Dot 0.0375 MG] 1 patch TOPICAL WESA 03/14/24 03/15/24 Allergies Allergy/AdvReac Type Severity Reaction Status Date / Time No Known Allergies Allergy Verified 03/15/24 09:40 Review of Systems ROS Statement: Those systems with pertinent positive or pertinent negative responses have been documented in the HPI. ROS Other: All systems not noted in ROS Statement are negative. Past Medical History Past Medical History: Hyperlipidemia, Thyroid Disorder History of Any Multi-Drug Resistant Organisms: None Reported Past Surgical History: Orthopedic Surgery, Tonsillectomy Additional Past Surgical History / Comment(s): ganglian cyst left wrist, plates rt leg Past Psychological History: No Psychological Hx Reported Smoking Status: Never smoker Past Alcohol Use History: Occasional Past Drug Use History: None Reported General Exam Limitations: no limitations General appearance: alert, in no apparent distress Head exam: Present: atraumatic, normocephalic, normal inspection Eye exam: Present: normal appearance, PERRL, EOMI. Absent: scleral icterus, conjunctival injection, periorbital swelling ENT exam: Present: normal exam, mucous membranes moist Neck exam: Present: normal inspection, full ROM. Absent: tenderness, meningismus, lymphadenopathy Respiratory exam: Present: normal lung sounds bilaterally. Absent: respiratory distress, wheezes, rales, rhonchi, stridor Cardiovascular Exam: Present: regular rate, normal rhythm, normal heart sounds. Absent: systolic murmur, diastolic murmur, rubs, gallop, clicks GI/Abdominal exam: Present: soft, normal bowel sounds. Absent: distended, tenderness, guarding, rebound, rigid Course Vital Signs 03/15/24 03/15/24 06:34 09:36 Temperature 97.9 F 98.4 F Pulse Rate 87 78 Respiratory 18 Rate Blood Pressure 146/84 123/87 O2 Sat by Pulse 99 97 Oximetry Medical Decision Making - Medical Decision Making Was pt. sent in by a medical professional or institution (, PA, WILDLIFE SCIENCE PROFESSOR, urgent care, hospital, or penitentiary...) When possible be specific @ -No Did you speak to anyone other than the patient for history (EMS, parent, family, police, friend...)? What history was obtained from this source @ -No Did you review nursing and triage notes (agree or disagree)? Why? @ -I reviewed and agree with nursing and triage notes Were old charts reviewed (outside hosp., previous admission, EMS record, old EKG, old radiological studies, urgent care reports/EKG's, penitentiary records)? Report findings @ -No old charts were reviewed Differential Diagnosis (chest pain, altered mental status, abdominal pain women, abdominal pain men, vaginal bleeding, weakness, fever, dyspnea, syncope, headache, dizziness, GI bleed, back pain, seizure, CVA, palpatations, mental health, musculoskeletal)? @ -Differential Abdominal Pain Women: Appendicitis, Cholecystitis, diverticulosis, ischemic bowel, pancreatitis, hepatitis, UTI, gastroenteritis, AAA, incarcerated hernia, bowel obstruction, constipation, inflammatory bowel, hepatitis, peptic ulcer disease, splenic infarction, perforated viscus, vulvitis, ovarian torsion, PID, kidney stone, placenta abruption, this is not meant to be an all-inclusive list EKG interpreted by me (3pts min.). @ -None X-rays interpreted by me (1pt min.). @ -None done CT interpreted by me (1pt min.). @ -None done U/S interpreted by me (1pt. min.). @ -None done What testing was considered but not performed or refused? (CT, X-rays, U/S, labs)? Why? @ -None What meds were considered but not given or refused? Why? @ -None Did you discuss the management of the patient with other professionals (professionals i.e. , PA, WILDLIFE SCIENCE PROFESSOR, lab, RT, psych nurse, social media community manager, production sorter, teacher, founder chairman and chief creative officer, case therapist)? Give summary @ -Dr. Mclaughlinfor admission with consults to GI and urology Was smoking cessation discussed for >3mins.? @ -No Was critical care preformed (if so, how long)? @ -No Were there social determinants of health that impacted care today? How? (Homelessness, low income, unemployed, alcoholism, drug addiction, transportation, low edu. Level, literacy, decrease access to med. care, detention, rehab)? @ -No Was there de-escalation of care discussed even if they declined (Discuss DNR or withdrawal of care, Hospice)? DNR status @ -No What co-morbidities impacted this encounter? (DM, HTN, Smoking, COPD, CAD, Cancer, CVA, ARF, Chemo, Hep., AIDS, mental health diagnosis, sleep apnea, morbid obesity)? @ -None Was patient admitted / discharged? Hospital course, mention meds given and route, prescriptions, significant lab abnormalities, going to OR and other pertinent info. @ -Admitted patient is having persistent intractable nausea patient has been orthostatic and has notable hydronephrosis and hematuria on multiple exams. Patient will be admitted n.p.o. IV fluids antiemetics and evaluations Undiagnosed new problem with uncertain prognosis? @ -No Drug Therapy requiring intensive monitoring for toxicity (Heparin, Nitro, Insulin, Cardizem)? @ -No Were any procedures done? @ -No Diagnosis/symptom? @ -Intra actable nausea, dehydration, hydronephrosis, hematuria Acute, or Chronic, or Acute on Chronic? @ -Acute Uncomplicated (without systemic symptoms) or Complicated (systemic symptoms)? @ -Complicated Side effects of treatment? @ -No Exacerbation, Progression, or Severe Exacerbation? @ -No Poses a threat to life or bodily function? How? (Chest pain, USA, DC, pneumonia, PE, COPD, DKA, ARF, appy, cholecystitis, CVA, Diverticulitis, Homicidal, Suicidal, threat to staff... and all critical care pts) @ -No - Lab Data Result diagrams: 03/15/24 07:10 03/15/24 07:10 Lab Results 03/15/24 03/15/24 03/15/24 Range/Units 07:10 07:10 07:10 WBC 5.9 (3.8-10.6) k/uL RBC 4.59 (3.80-5.40) m/uL Hgb 13.7 (11.4-16.0) gm/dL Hct 41.6 (34.0-46.0) % MCV 90.5 (80.0-100.0) fL MCH 29.8 (25.0-35.0) pg MCHC 32.9 (31.0-37.0) g/dL RDW 12.5 (11.5-15.5) % Plt Count 172 (150-450) k/uL MPV 8.1 Neutrophils % 78 % Lymphocytes % 16 % Monocytes % 4 % Eosinophils % 1 % Basophils % 1 % Neutrophils # 4.6 (1.3-7.7) k/uL Lymphocytes # 0.9 L (1.0-4.8) k/uL Monocytes # 0.2 (0-1.0) k/uL Eosinophils # 0.0 (0-0.7) k/uL Basophils # 0.1 (0-0.2) k/uL D-Dimer (<0.60) mg/L FEU Sodium 138 (137-145) mmol/L Potassium 4.4 (3.5-5.1) mmol/L Chloride 107 (98-107) mmol/L Carbon Dioxide 23 (22-30) mmol/L Anion Gap 8 mmol/L BUN 12 (7-17) mg/dL Creatinine 0.66 (0.52-1.04) mg/dL Est GFR (CKD-EPI)AfAm >90 (>60 ml/min/1.73 sqM) Est GFR (CKD-EPI)NonAf >90 (>60 ml/min/1.73 sqM) Glucose 115 H (74-99) mg/dL Calcium 9.1 (8.4-10.2) mg/dL Phosphorus 2.9 (2.5-4.5) mg/dL Magnesium 2.0 (1.6-2.3) mg/dL Total Bilirubin 0.5 (0.2-1.3) mg/dL AST 21 (14-36) U/L ALT 16 (4-34) U/L Alkaline Phosphatase 69 (38-126) U/L Troponin I (0.000-0.034) ng/mL Total Protein 7.2 (6.3-8.2) g/dL Albumin 4.1 (3.5-5.0) g/dL Lipase 52 (23-300) U/L Urine Color Colorless Urine Appearance Cloudy H (Clear) Urine pH 7.0 (5.0-8.0) Ur Specific Brewster 1.007 (1.001-1.035) Urine Protein Negative (Negative) Urine Glucose (UA) Negative (Negative) Urine Ketones Negative (Negative) Urine Blood Small H (Negative) Urine Nitrite Negative (Negative) Urine Bilirubin Negative (Negative) Urine Urobilinogen <2.0 (<2.0) mg/dL Ur Leukocyte Esterase Large H (Negative) Urine RBC 6 H (0-5) /hpf Urine WBC 3 (0-5) /hpf Ur Squamous Epith Cells 8 H (0-4) /hpf Urine Bacteria Rare H (None) /hpf Urine Mucus Rare H (None) /hpf 03/15/24 03/15/24 Range/Units 07:10 07:10 WBC (3.8-10.6) k/uL RBC (3.80-5.40) m/uL Hgb (11.4-16.0) gm/dL Hct (34.0-46.0) % MCV (80.0-100.0) fL MCH (25.0-35.0) pg MCHC (31.0-37.0) g/dL RDW (11.5-15.5) % Plt Count (150-450) k/uL MPV Neutrophils % % Lymphocytes % % Monocytes % % Eosinophils % % Basophils % % Neutrophils # (1.3-7.7) k/uL Lymphocytes # (1.0-4.8) k/uL Monocytes # (0-1.0) k/uL Eosinophils # (0-0.7) k/uL Basophils # (0-0.2) k/uL D-Dimer 0.41 (<0.60) mg/L FEU Sodium (137-145) mmol/L Potassium (3.5-5.1) mmol/L Chloride (98-107) mmol/L Carbon Dioxide (22-30) mmol/L Anion Gap mmol/L BUN (7-17) mg/dL Creatinine (0.52-1.04) mg/dL Est GFR (CKD-EPI)AfAm (>60 ml/min/1.73 sqM) Est GFR (CKD-EPI)NonAf (>60 ml/min/1.73 sqM) Glucose (74-99) mg/dL Calcium (8.4-10.2) mg/dL Phosphorus (2.5-4.5) mg/dL Magnesium (1.6-2.3) mg/dL Total Bilirubin (0.2-1.3) mg/dL AST (14-36) U/L ALT (4-34) U/L Alkaline Phosphatase (38-126) U/L Troponin I <0.012 (0.000-0.034) ng/mL Total Protein (6.3-8.2) g/dL Albumin (3.5-5.0) g/dL Lipase (23-300) U/L Urine Color Urine Appearance (Clear) Urine pH (5.0-8.0) Ur Specific Brewster (1.001-1.035) Urine Protein (Negative) Urine Glucose (UA) (Negative) Urine Ketones (Negative) Urine Blood (Negative) Urine Nitrite (Negative) Urine Bilirubin (Negative) Urine Urobilinogen (<2.0) mg/dL Ur Leukocyte Esterase (Negative) Urine RBC (0-5) /hpf Urine WBC (0-5) /hpf Ur Squamous Epith Cells (0-4) /hpf Urine Bacteria (None) /hpf Urine Mucus (None) /hpf Disposition Clinical Impression: Dehydration, Intractable nausea and vomiting, Hematuria, Hydronephrosis Disposition: ADMITTED IP TO THIS [facility] Condition: Fair Referrals: Jose Byrd DO [Primary Care Provider] - 1-2 days Time of Disposition: 09:44
[2024-03-15] MEDS ORDERED: METOCLOPRAMIDE 5 MG/ML 2 ML VIAL IVP PRN (09:46)
[2024-03-15] MEDS: METOCLOPRAMIDE 5 MG/ML 2 ML VIAL IVP STA (10:33)
[2024-03-15] MEDS: SODIUM CHLORIDE 0.9% 1,000 ML IV SCH (10:33)
[2024-03-15] MEDS: LORATADINE-PSEUDOEPH 5-120 MG 1 EACH TAB.ER.12H PO SCH (13:56)
[2024-03-15] MEDS: LACTATED RINGERS 1,000 ML IV SCH (13:56)
[2024-03-15] MEDS: SCOPOLAMINE 1 MG/72 HR PATCH TRANSDERM SCH (13:57)
--- NOTE | 2024-03-15 20:31 | P.HPIM ---
History of Present Illness H&P Date: 03/15/24 Chief Complaint: Nausea This is a pleasant 68-year-old patient who follows with Dr. 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 For about 21 days patient's had what she felt I was flulike symptoms. And it has lingered some nausea and congestion. Which is not getting relief. Every time she is just tries to eat and drink she gets sick. She has had 2 visits to the ER including on March 09 and March 14. Did feel better after getting IV fluids. Denies any abdominal pain. Appetite has not been good. Has been trying to drink a lot of water. About 8 weeks ago started on estrogen and progesterone. Nonspecific symptoms. Patient is also being worked up by her loss prevention and safety manager for Sjogren's syndrome. Patient does have dry eyes dry mouth dry vagina. Some blood work is already been ordered for the same. About 4 weeks ago patient dose of thyroid supplementation was decreased. As she was felt to be slightly over replaced. Appetite has been down. Review of systems: GEN.: Tired decreased appetite EYES: Dry eyes e HEENT: Plugging in the ears congested throat NECK: None RESPIRATORY: As above e CARDIOVASCULAR: None GASTROINTESTINAL: As above e GENITOURINARY: Dry vagina MUSCULOSKELETAL: None LYMPHATICS: None HEMATOLOGICAL: None Social history: Lives alone. Teacher at a [employer] school. No smoking no alcohol. Physical examination: VITAL SIGNS: 98.6, 74, 16, 139 x 73, 95% room air GENERAL: BMI 21.9, sitting bed awake slightly anxious. EYES: Pupils equal. Conjunctiva jose e l. HEENT: External appearance of nose and ears normal, oral cavity grossly normal. NECK: JVD not raised; masses not palpable. HEART: First and second heart sounds are normal; no edema. LUNGS: Respiratory rate normal; clear to auscultation. ABDOMEN: Soft, nontender, liver spleen not palpable, no masses palpable. PSYCH: Alert and oriented x3; mood and affect jose e l. MUSCULOSKELETAL:No Clubbing/cyanosis;muscles-grossly intact NEUROLOGICAL: Cranial nerves grossly intact; no facial asymmetry, power and sensation grossly intact. LYMPHATICS: No lymph nodes palpable in the axilla and neck INVESTIGATIONS, reviewed in the clinical context: March 15, 2024: White count 5.9 hemoglobin 13.7 platelets 132 sodium 138 potassium 4.4 BUN 12 creatinine 0.66 UA positive for small blood. Large leukoesterase RBC 6 squamous epithelial cells 8 Investigations from recent presentation to the ER: Ultrasound kidney bladder: Mild left-sided hydronephrosis and slight fullness of the right renal cortical system. CT brain without contrast: Unremarkable CT abdomen pelvis: Possible mild left hydronephrosis. Numerous pelvic p hleboliths. EKG tracing personally reviewed by me-normal sinus rhythm. Nonspecific T wave changes. Chest x-ray film personally reviewed by me-lung back clear. Hyperinflation Assessment and plan: -Persistent nausea with occasional vomiting for last 3 weeks following upper respite tract infection/bronchitis symptoms. Excessive water intake may be precipitating nausea in the setting of not able to have oral intake. Cut back water intake. Try buddy lois etc. Soft diet. Scopolamine patch -Dry eyes, dry mouth, dry vagina, patient be worked up for Sjogren's syndrome by her loss prevention and safety manager out of [place] -Upper respite tract infection with congested nose ears plugged likely viral. Claritin-D 1 tablet twice daily -Hypothyroid About 4 weeks ago patient's dose of supplement was cut back to currently on levothyroxine 62.5 mcg. Cytomel 5 mcg. -Chronic generalized inflammation for which patient takes naltrexone as prescribed by loss prevention and safety manager Care was discussed with the patient. Questions answered. Past Medical History Past Medical History: Hyperlipidemia, Thyroid Disorder History of Any Multi-Drug Resistant Organisms: None Reported Past Surgical History: Orthopedic Surgery, Tonsillectomy Additional Past Surgical History / Comment(s): ganglian cyst left wrist, plates rt leg Past Psychological History: No Psychological Hx Reported Smoking Status: Never smoker Past Alcohol Use History: Occasional Past Drug Use History: None Reported Medications and Allergies Home Medications Medication Instructions Recorded Confirmed Type Levothyroxine Sodium [Tirosint] 62.5 mcg PO DAILY 03/14/24 03/15/24 History Liothyronine Sodium [Cytomel] 5 mcg PO DAILY 03/14/24 03/15/24 History Naltrexone HCl [Naltrex] 4.5 mg PO HS 03/14/24 03/15/24 History Progesterone, Micronized 100 mg PO HS 03/14/24 03/15/24 History [Progesterone] estradioL [Vivelle-Dot 0.0375 MG] 1 patch TOPICAL WESA 03/14/24 03/15/24 History Allergies Allergy/AdvReac Type Severity Reaction Status Date / Time No Known Allergies Allergy Verified 03/15/24 09:40 Physical Exam Vitals: Vital Signs Temp Pulse Resp BP Pulse Ox 03/15/24 09:36 98.4 F 78 123/87 97 03/15/24 06:34 97.9 F 87 18 146/84 99 Intake and Output 03/14/24 03/15/24 03/15/24 22:59 06:59 14:59 Other: Weight 65.317 kg Results CBC & Chem 7: 03/15/24 07:10 03/15/24 07:10 Labs: Abnormal Lab Results - Last 24 Hours (Table) 03/15/24 03/15/24 03/15/24 Range/Units 07:10 07:10 07:10 Lymphocytes # 0.9 L (1.0-4.8) k/uL Glucose 115 H (74-99) mg/dL Urine Appearance Cloudy H (Clear) Urine Blood Small H (Negative) Ur Leukocyte Esterase Large H (Negative) Urine RBC 6 H (0-5) /hpf Ur Squamous Epith Cells 8 H (0-4) /hpf Urine Bacteria Rare H (None) /hpf Urine Mucus Rare H (None) /hpf
[2024-03-15] MEDS: NON FORMULARY DRUG (Progesterone, Micronized [Progesterone] 100 MG Capsule) PO SCH (21:14)
[2024-03-15] MEDS: NALTREXONE HCL 4.5 MG PO SCH (21:15)
[2024-03-16] MEDS: PROCHLORPERAZINE INJ 10 MG/2 ML VIAL IVP PRN (03:13)
[2024-03-16] MEDS: LEVOTHYROXINE 112 MCG TAB PO SCH (07:07)
[2024-03-16] MEDS ORDERED: PANTOPRAZOLE 40 MG/10 ML VIAL IV SCH (09:00)
[2024-03-16] MEDS ORDERED: PANTOPRAZOLE 40 MG/10 ML VIAL IVP SCH (09:00)
[2024-03-16 09:31] VITALS: BP 122/69; PULSE 78; RESP 16; TEMP 97.3
[2024-03-16] MEDS: LIOTHYRONINE SODIUM 5 MCG TAB PO SCH (10:18)
--- NOTE | 2024-03-16 10:47 | CT ---
EXAMINATION TYPE: CT urogram wo/w con DATE OF EXAM: 03/16/2024 COMPARISON: 03/09/2024 HISTORY: microhematuria CT DLP: 1101.8 mGycm CONTRAST: Performed and with IV Contrast, patient injected with 70 mL of Isovue 370. CT Urography was performed with unenhanced followed by enhanced images of the kidneys, ureters and ur inary bladder. Delayed images were obtained. 3d reconstruction was performed at a separate work sta tion. FINDINGS: KIDNEYS/BLADDER: There is left-sided parapelvic cysts noted without evidence for charity hydronephrosi s. No hydronephrosis. No nephrolithiasis. No distinct renal mass. Urinary bladder grossly unremarka ble. LUNG BASES-: No visible nodule. No infiltrate. LIVER/GB: No calcified gallstones. No space occupying hepatic lesion. Biliary tree is of normal ca liber. PANCREAS: No inflammation. No distinct mass. SPLEEN: No splenic enlargement. No lesion seen. ADRENALS: No nodule. No thickening. BOWEL: Normal appendix. Normal bowel caliber. No inflammation. GENITAL ORGANS: No gross abnormality. LYMPH NODES: No greater than 1cm abdominal or pelvic lymph nodes are appreciated. AORTA: No significant abnormality. OSSEOUS STRUCTURES: Severe degenerative change at the L4-5 and L5-S1. Grade 2 anterolisthesis L5 on S 1 measuring 1.2 cm. OTHER: No significant additional abnormality is seen. IMPRESSION: 1. Parapelvic cysts left kidney without evidence for hydronephrosis or obstructive uropathy. No mass lesions are detected this time to account for microscopic hematuria. Correlate clinically.
--- NOTE | 2024-03-16 16:46 | P.GSCN ---
History of Present Illness Consult date: 03/16/24 Reason for Consult: Hydronephrosis History of present illness: This is a 68-year-old female admitted to the hospital with abdominal pain associ ated with nausea and vomiting. Urology is consulted for CT finding of left- sided hydronephrosis and microscopic hematuria. Patient has had few ER presentation secondary to her nausea and vomiting. Indicates it is associated with bilateral abdominal pain. Denies any previous history of kidney stones, any dysuria gross hematuria or urinary symptoms. She has seen Dr. Warner in the past for microscopic hematuria. She did undergo CT urogram this morning that showed no evidence of hydronephrosis or any filling defect in the kidney or the ureter. Review of Systems - Constitutional Denies fever, Denies weight loss - EENT Ears, nose, mouth and throat: Denies dysphagia - Cardiovascular Denies chest pain, Denies shortness of breath - Respiratory Denies cough, Denies 7 - Gastrointestinal Reports abdominal pain, Reports nausea, Reports vomiting - Genitourinary Genitourinary: Denies dysuria, Denies hematuria - Neurological Denies headaches, Denies syncope Past Medical History Past Medical History: Hyperlipidemia, Thyroid Disorder History of Any Multi-Drug Resistant Organisms: None Reported Past Surgical History: Orthopedic Surgery, Tonsillectomy Additional Past Surgical History / Comment(s): ganglian cyst left wrist, plates rt leg Past Psychological History: No Psychological Hx Reported Smoking Status: Never smoker Past Alcohol Use History: Occasional Past Drug Use History: None Reported Medications and Allergies Home Medications Medication Instructions Recorded Confirmed Type Levothyroxine Sodium [Tirosint] 62.5 mcg PO DAILY 03/14/24 03/15/24 History Liothyronine Sodium [Cytomel] 5 mcg PO DAILY 03/14/24 03/15/24 History Naltrexone HCl [Naltrex] 4.5 mg PO HS 03/14/24 03/15/24 History Progesterone, Micronized 100 mg PO HS 03/14/24 03/15/24 History [Progesterone] estradioL [Vivelle-Dot 0.0375 MG] 1 patch TOPICAL WESA 03/14/24 03/15/24 History Loratadine-Pseudoeph 5-120 mg 1 each PO Q12HR #6 tab 03/16/24 Rx [Claritin-D 12 Hour] Prochlorperazine [Compazine] 5 mg PO Q8HR PRN #30 tab 03/16/24 Rx Allergies Allergy/AdvReac Type Severity Reaction Status Date / Time No Known Allergies Allergy Verified 03/15/24 09:40 Surgical - Exam Vital Signs Temp Pulse Resp BP Pulse Ox 97.9 F 87 18 146/84 99 03/15/24 06:34 03/15/24 06:34 03/15/24 06:34 03/15/24 06:34 03/15/24 06:34 - General no distress, no pain - Eyes normal ocular movement, no pale - ENT normal nares, normal mucosa - Respiratory normal expansion, normal respiratory effort - Abdomen Abdomen: soft, non tender - Psychiatric oriented to time, oriented to person Results - Labs 03/15/24 07:10 03/15/24 07:10 Assessment and Plan Assessment: This is a 68-year-old female with a history of left-sided hydronephrosis, nausea and vomiting, on CT on March 09. She had a CT urogram during this hospital admission that showed resolution of hydronephrosis. She has previously seen Dr. Hand for her microscopic hematuria. From urology standpoint given the resolution of hydronephrosis no further evaluation is needed. She is okay for discharge from urology standpoint
--- NOTE | 2024-03-16 22:21 | P.DS ---
Providers Date of admission: 03/15/24 09:12 Expected date of discharge: 03/16/24 Attending physician: Deepak Mclaughlin Consults: 03/15/24 09:44 Consult Physician Urgent Consulting Provider: Shay Wesley Consult Reason/Comments: Persistent hydronephrosis, hematuria Do you want consulting provider notified?: Yes [facility] Course: Chief Complaint: Nausea This is a pleasant 68-year-old patient who follows with Dr. 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 For about 21 days patient's had what she felt I was flulike symptoms. And it has lingered some nausea and congestion. Which is not getting relief. Every time she is just tries to eat and drink she gets sick. She has had 2 visits to the ER including on March 09 and March 14. Did feel better after getting IV fluids. Denies any abdominal pain. Appetite has not been good. Has been trying to drink a lot of water. About 8 weeks ago started on estrogen and progesterone. Nonspecific symptoms. Patient is also being worked up by her occupational therapy teacher for Sjogren's syndrome. Patient does have dry eyes dry mouth dry vagina. Some blood work is already been ordered for the same. About 4 weeks ago patient dose of thyroid supplementation was decreased. As she was felt to be slightly over replaced. Appetite has been down. March 16, 2024: Discussed with patient. Diet discussed. Patient to follow-up with Dr. Sallie Hunter from GI. Dr. Warner from urology. And also follow-up with the occupational therapy teacher. Social history: Lives alone. Teacher at a [employer] school. No smoking no alcohol. Physical examination: VITAL SIGNS: 97.3, 78, 16, 122 x 69, 93% room air GENERAL: BMI 21.9, sitting bed awake slightly anxious. EYES: Pupils equal. Conjunctiva jose e l. HEENT: External appearance of nose and ears normal, oral cavity grossly normal. NECK: JVD not raised; masses not palpable. HEART: First and second heart sounds are normal; no edema. LUNGS: Respiratory rate normal; clear to auscultation. ABDOMEN: Soft, nontender, liver spleen not palpable, no masses palpable. PSYCH: Alert and oriented x3; mood and affect jose e l. MUSCULOSKELETAL:No Clubbing/cyanosis;muscles-grossly intact INVESTIGATIONS, reviewed in the clinical context: CT urogram:paraPelvic/left kidney without evidence of hydronephrosis or obstructive uropathy. March 15, 2024: White count 5.9 hemoglobin 13.7 platelets 132 sodium 138 potassium 4.4 BUN 12 creatinine 0.66 UA positive for small blood. Large leukoesterase RBC 6 squamous epithelial cells 8 Investigations from recent presentation to the ER: Ultrasound kidney bladder: Mild left-sided hydronephrosis and slight fullness of the right renal cortical system. CT brain without contrast: Unremarkable CT abdomen pelvis: Possible mild left hydronephrosis. Numerous pelvic phleboliths. EKG tracing personally reviewed by me-normal sinus rhythm. Nonspecific T wave changes. Chest x-ray film personally reviewed by me-lung back clear. Hyperinflation Assessment and plan: -Persistent nausea with occasional vomiting for last 3 weeks following upper respite tract infection/bronchitis symptoms. Excessive water intake may be precipitating nausea in the setting of not able to have oral intake. Cut back water intake. Try buddy lois etc. Soft diet. Follow-up with Dr. Sallie Hunter-GI -Dry eyes, dry mouth, dry vagina, patient be worked up for Sjogren's syndrome by her occupational therapy teacher out of [place] -Intermittent hematuria Being worked up by Dr. Warner outpatient -Upper respite tract infection with congested nose ears plugged likely viral. Claritin-D 1 tablet twice daily-6 tablets more -Hypothyroid About 4 weeks ago patient's dose of supplement was cut back to currently on levothyroxine 62.5 mcg. Cytomel 5 mcg. -Chronic generalized inflammation for which patient takes naltrexone as prescribed by occupational therapy teacher Disposition: Home Past Medical History Past Medical History: Hyperlipidemia, Thyroid Disorder History of Any Multi-Drug Resistant Organisms: None Reported Past Surgical History: Orthopedic Surgery, Tonsillectomy Additional Past Surgical History / Comment(s): ganglian cyst left wrist, plates rt leg Past Psychological History: No Psychological Hx Reported Smoking Status: Never smoker Past Alcohol Use History: Occasional Past Drug Use History: None Reported Plan - Discharge Summary Discharge Rx Participant: No New Discharge Prescriptions: New Loratadine-Pseudoeph 5-120 mg [Claritin-D 12 Hour] 1 each PO Q12HR #6 tab Prochlorperazine [Compazine] 5 mg PO Q8HR PRN #30 tab PRN Reason: Nausea Continue estradioL [Vivelle-Dot 0.0375 MG] 1 patch TOPICAL WESA Progesterone, Micronized [Progesterone] 100 mg PO HS Liothyronine Sodium [Cytomel] 5 mcg PO DAILY Levothyroxine Sodium [Tirosint] 62.5 mcg PO DAILY Naltrexone HCl [Naltrex] 4.5 mg PO HS Discharge Medication List Levothyroxine Sodium [Tirosint] 62.5 mcg PO DAILY 03/14/24 [History] Liothyronine Sodium [Cytomel] 5 mcg PO DAILY 03/14/24 [History] Naltrexone HCl [Naltrex] 4.5 mg PO HS 03/14/24 [History] Progesterone, Micronized [Progesterone] 100 mg PO HS 03/14/24 [History] estradioL [Vivelle-Dot 0.0375 MG] 1 patch TOPICAL WESA 03/14/24 [History] Loratadine-Pseudoeph 5-120 mg [Claritin-D 12 Hour] 1 each PO Q12HR #6 tab 03/16/24 [Rx] Prochlorperazine [Compazine] 5 mg PO Q8HR PRN #30 tab 03/16/24 [Rx] Follow up Appointment(s)/Referral(s): Jose Byrd DO [Primary Care Provider] - 1-2 days Brock Warner MD [STAFF PHYSICIAN] - 2 Weeks (Office will call patient with date and time of appointment) Patient Instructions/Handouts: Acute Nausea and Vomiting (DC), Hematuria (ED) Discharge Disposition: HOME SELF-CARE
[2024-03-17] MEDS ORDERED: ESTRADIOL TOPICAL SCH (09:00)
== END 2024-03-16 14:30 | disposition home or self-care (01) ==
LOC: EC 06:28 → 6NMEDSUR 09:12 → 5NMEDONC 19:13 → 6NMEDSUR 03-16 02:24
PROVIDERS: ADMIT Hospitalist; ATTEND Hospitalist
DX: R11.2 Nausea with vomiting, unspecified (principal); R68.2 Dry mouth, unspecified; H04.129 Dry eye syndrome of unspecified lacrimal gland; N89.8 Other specified noninflammatory disorders of vagina; J06.9 Acute upper respiratory infection, unspecified; R31.9 Hematuria, unspecified; N13.30 Unspecified hydronephrosis; E03.9 Hypothyroidism, unspecified; E78.5 Hyperlipidemia, unspecified; Z79.890 Hormone replacement therapy; Z79.899 Other long term (current) drug therapy
CPT/HCPCS: 96361; 96374; 96375; 99285; 36415; 85379; 80053; 83690; 83735; 84100; 84484; 85025; 81001; 74178; 74400; G0378 ×2; S0183; J0780; J2765; Q9967

== ENCOUNTER 2024-04-11 06:07 | Emergency (ER) | payer MEDICARE ==
[2024-04-11 06:51] LABS: Basophils % (A) 0 %; Eosinophils % (A) 1 %; HCT 40.3 % (34.0-46.0); HGB 13.7 gm/dL (11.4-16.0); Lymphocytes # (A) 1.1 k/uL (1.0-4.8); Lymphocytes % (A) 17 %; MCH 30.7 pg (25.0-35.0); MCV 90.2 fL (80.0-100.0); Mean Platelet Volume 8.1; Monocytes # (A) 0.3 k/uL (0-1.0); Monocytes % (A) 4 %; Neutrophils # (A) 4.8 k/uL (1.3-7.7); Neutrophils % (A) 77 %; Platelet Count 162 k/uL (150-450); RBC 4.47 m/uL (3.80-5.40); RDW 13.4 % (11.5-15.5); WBC 6.2 k/uL (3.8-10.6)
--- NOTE | 2024-04-11 06:54 | ED ---
Abdominal Pain HPI - General Chief Complaint: Abdominal Pain Stated Complaint: Nausea abd pain high blood pressure Time Seen by Provider: 04/11/24 06:54 Source: patient, RN notes reviewed Mode of arrival: ambulatory Limitations: no limitations - History of Present Illness Initial Comments: 68-year-old female presented to ER with a chief complaint of dizziness and nausea. Patient states this been an ongoing problem for the past month or 2. She states she has been in and out of the hospital multiple times for this complaint. She states for the past 2 days she has been having increase in dizziness with nausea. She states she is currently and worked up outpatient for thyroid disorder but is having difficulty getting into environmental permitting specialist until lat er this month. She states she has been feeling extremely weak and unable to do normal activities. She is not currently taking any thyroid medication. She states her nausea is causing her to have a decreased appetite and losing weight. She does report an intentional weight loss of 50 pounds in the past year due to changing her diet as she was prediabetic. She also is currently reporting left-sided sharp abdominal pain/flank pain. She states she has a history of hematuria and is following up with Dr. Warner but is unable to follow-up with him until April. Patient reports she was recently found to have a kidney stone on the left side. She admits to recent palpitations but denies chest pain, shortness of breath, urinary complaints, constipation/diarrhea or peripheral edema. - Related Data Home Medications Medication Instructions Recorded Confirmed Naltrexone HCl [Naltrex] 4.5 mg PO HS 03/14/24 04/11/24 Progesterone, Micronized 100 mg PO HS 03/14/24 04/11/24 [Progesterone] estradioL [Vivelle-Dot 0.0375 MG] 1 patch TOPICAL WESA 03/14/24 04/11/24 Previous Rx's Medication Instructions Recorded Meclizine [Antivert] 25 mg PO TID PRN #15 tab 04/11/24 Allergies Allergy/AdvReac Type Severity Reaction Status Date / Time No Known Allergies Allergy Verified 04/11/24 11:04 Review of Systems ROS Statement: Those systems with pertinent positive or pertinent negative responses have been documented in the HPI. ROS Other: All systems not noted in ROS Statement are negative. Past Medical History Past Medical History: Hyperlipidemia, Thyroid Disorder History of Any Multi-Drug Resistant Organisms: None Reported Past Surgical History: Orthopedic Surgery, Tonsillectomy Additional Past Surgical History / Comment(s): ganglian cyst left wrist, plates rt leg Past Psychological History: No Psychological Hx Reported Smoking Status: Never smoker Past Alcohol Use History: Occasional Past Drug Use History: None Reported General Exam Limitations: no limitations General appearance: alert, in no apparent distress Eye exam: Present: normal appearance, PERRL, EOMI. Absent: scleral icterus, conjunctival injection, periorbital swelling Pupils: Present: normal accommodation ENT exam: Present: normal exam, mucous membranes moist, TM's normal bilaterally Respiratory exam: Present: normal lung sounds bilaterally. Absent: respiratory distress, wheezes, rales, rhonchi, stridor Cardiovascular Exam: Present: regular rate, normal rhythm, normal heart sounds. Absent: systolic murmur, diastolic murmur, rubs, gallop, clicks GI/Abdominal exam: Present: soft, normal bowel sounds. Absent: distended, tenderness, guarding, rebound, rigid Extremities exam: Present: normal inspection, full ROM, normal capillary refill. Absent: tenderness, pedal edema, joint swelling, calf tenderness Neurological exam: Present: alert, oriented X3, CN II-XII intact Skin exam: Present: warm, dry, intact, normal color. Absent: rash Course Vital Signs 04/11/24 04/11/24 04/11/24 06:10 07:56 09:50 Temperature 97.3 F L 98.3 F 98.2 F Pulse Rate 98 65 70 Respiratory 18 16 16 Rate Blood Pressure 153/98 135/86 136/79 O2 Sat by Pulse 99 97 97 Oximetry 04/11/24 12:12 Temperature 98.7 F Pulse Rate 78 Respiratory 16 Rate Blood Pressure 112/77 O2 Sat by Pulse 97 Oximetry Medical Decision Making - Medical Decision Making Was pt. sent in by a medical professional or institution (, PA, CLAY CARMAN, urgent care, hospital, or retirement...) When possible be specific @ -No Did you speak to anyone other than the patient for history (EMS, parent, family, police, friend...)? What history was obtained from this source @ -No Did you review nursing and triage notes (agree or disagree)? Why? @ -I reviewed and agree with nursing and triage notes Were old charts reviewed (outside hosp., previous admission, EMS record, old EKG, old radiological studies, urgent care reports/EKG's, retirement records)? Report findings @ -No old charts were reviewed Differential Diagnosis (chest pain, altered mental status, abdominal pain women, abdominal pain men, vaginal bleeding, weakness, fever, dyspnea, syncope, headache, dizziness, GI bleed, back pain, seizure, CVA, palpatations, mental health, musculoskeletal)? @ -Differential Dizziness: Benign paroxysmal positional Vertigo, Menieres di sease, otitis media, acoustic neuroma, vertebrobasilar insufficiency, cerebellar stroke, encephalitis, hypovolemic, arrhythmia, coronary artery syndrome, anemia, this is not meant to be an all-inclusive list EKG interpreted by me (3pts min.). @ -As above X-rays interpreted by me (1pt min.). @ -None done CT interpreted by me (1pt min.). @ -CTA head and neck negative for acute process. U/S interpreted by me (1pt. min.). @ -None done What testing was considered but not performed or refused? (CT, X-rays, U/S, labs)? Why? @ -None What meds were considered but not given or refused? Why? @ -None Did you discuss the management of the patient with other professionals (professionals i.e. , PA, CLAY CARMAN, lab, RT, psych nurse, social work manager, speedometer inspector, teacher, grant officer, manager rn case)? Give summary @ -No Was smoking cessation discussed for >3mins.? @ -No Was critical care preformed (if so, how long)? @ -No Were there social determinants of health that impacted care today? How? (Homelessness, low income, unemployed, alcoholism, drug addiction, transportation, low edu. Level, literacy, decrease access to med. care, longterm, rehab)? @ -No Was there de-escalation of care discussed even if they declined (Discuss DNR or withdrawal of care, Hospice)? DNR status @ -No What co-morbidities impacted this encounter? (DM, HTN, Smoking, COPD, CAD, Cancer, CVA, ARF, Chemo, Hep., AIDS, mental health diagnosis, sleep apnea, morbid obesity)? @ -Chronic hematuria following up with Dr. Warner outpatient Was patient admitted / discharged? Hospital course, mention meds given and route, prescriptions, significant lab abnormalities, going to OR and other pertinent info. @ -Discharged. 68 year old female presenting to the ER with chief complaint of dizziness and nausea. History and physical exam completed. Vitals upon arrival remarkable for a temperature of 97.3, heart rate 98, respiratory rate 18, blood pressure 153/98, oxygen saturation 99% on room air. Patient no signs of acute distress and nontoxic-appearing. Exam unremarkable. Laboratory studies obtained non specific. TSH 1.530. Troponon <0.012. Urinalysis hemorrhagic but appears to be chronic in nature. Urine sent for culture. Antibiotics will not be started at this time as patient is currently asymptomatic. CTA performed due to dizziness to rule out stenosis or aneurysm. CTA negative for acute process. Patient received IV fluids, Zofran, Reglan and Antivert for symptom control in the ER. Upon reevaluation, patient sitting in chair in exam room in no signs of acute distress results discussed with patient, all questions answered. Results discussed with patient, all questions answered. Patient stable for discharge at this time. I advised close follow-up with specialist and PCP in the next 1 to 2 days. Antivert prescribed. Strict return parameters discussed. Patient discharged stable condition. Patient verbally expressed understanding and agreed with care plan. Case discussed with ED attending, Dr. Jose. Undiagnosed new problem with uncertain prognosis? @ -No Drug Therapy requiring intensive monitoring for toxicity (Heparin, Nitro, Insulin, Cardizem)? @ -No Were any procedures done? @ -No Diagnosis/symptom? @ -Dizziness Acute, or Chronic, or Acute on Chronic? @ -Acute Uncomplicated (without systemic symptoms) or Complicated (systemic symptoms)? @ -Uncomplicated Side effects of treatment? @ -No Exacerbation, Progression, or Severe Exacerbation? @ -No Poses a threat to life or bodily function? How? (Chest pain, [place], [place], pneumonia, PE, COPD, DKA, ARF, appy, cholecystitis, CVA, Diverticulitis, Homicidal, Suicidal, threat to staff... and all critical care pts) @ -No - Lab Data Result diagrams: 04/11/24 06:39 04/11/24 06:39 Lab Results 04/11/24 04/11/24 04/11/24 Range/Units 06:39 06:39 06:39 WBC 6.2 (3.8-10.6) k/uL RBC 4.47 (3.80-5.40) m/uL Hgb 13.7 (11.4-16.0) gm/dL Hct 40.3 (34.0-46.0) % MCV 90.2 (80.0-100.0) fL MCH 30.7 (25.0-35.0) pg MCHC 34.0 (31.0-37.0) g/dL RDW 13.4 (11.5-15.5) % Plt Count 162 (150-450) k/uL MPV 8.1 Neutrophils % 77 % Lymphocytes % 17 % Monocytes % 4 % Eosinophils % 1 % Basophils % 0 % Neutrophils # 4.8 (1.3-7.7) k/uL Lymphocytes # 1.1 (1.0-4.8) k/uL Monocytes # 0.3 (0-1.0) k/uL Eosinophils # 0.0 (0-0.7) k/uL Basophils # 0.0 (0-0.2) k/uL PT (10.0-12.5) sec INR (<1.2) APTT (22.0-30.0) sec Sodium 139 (137-145) mmol/L Potassium 3.8 (3.5-5.1) mmol/L Chloride 108 H (98-107) mmol/L Carbon Dioxide 23 (22-30) mmol/L Anion Gap 8 mmol/L BUN 20 H (7-17) mg/dL Creatinine 0.78 (0.52-1.04) mg/dL Est GFR (CKD-EPI)AfAm >90 (>60 ml/min/1.73 sqM) Est GFR (CKD-EPI)NonAf 80 (>60 ml/min/1.73 sqM) Glucose 103 H (74-99) mg/dL Plasma Lactic Acid Issac (0.7-2.0) mmol/L Calcium 9.3 (8.4-10.2) mg/dL Total Bilirubin 0.6 (0.2-1.3) mg/dL AST 25 (14-36) U/L ALT 15 (4-34) U/L Alkaline Phosphatase 72 (38-126) U/L Troponin I (0.000-0.034) ng/mL Total Protein 7.4 (6.3-8.2) g/dL Albumin 4.6 (3.5-5.0) g/dL TSH (0.465-4.680) mIU/L Urine Color Colorless Urine Appearance Cloudy H (Clear) Urine pH 7.0 (5.0-8.0) Ur Specific [place] 1.011 (1.001-1.035) Urine Protein Negative (Negative) Urine Glucose (UA) Negative (Negative) Urine Ketones Negative (Negative) Urine Blood Moderate H (Negative) Urine Nitrite Negative (Negative) Urine Bilirubin Negative (Negative) Urine Urobilinogen <2.0 (<2.0) mg/dL Ur Leukocyte Esterase Moderate H (Negative) Urine RBC 15 H (0-5) /hpf Urine WBC 6 H (0-5) /hpf Ur Squamous Epith Cells 29 H (0-4) /hpf Amorphous Sediment Rare H (None) /hpf Urine Mucus Rare H (None) /hpf 04/11/24 04/11/24 04/11/24 Range/Units 06:39 07:48 07:48 WBC (3.8-10.6) k/uL RBC (3.80-5.40) m/uL Hgb (11.4-16.0) gm/dL Hct (34.0-46.0) % MCV (80.0-100.0) fL MCH (25.0-35.0) pg MCHC (31.0-37.0) g/dL RDW (11.5-15.5) % Plt Count (150-450) k/uL MPV Neutrophils % % Lymphocytes % % Monocytes % % Eosinophils % % Basophils % % Neutrophils # (1.3-7.7) k/uL Lymphocytes # (1.0-4.8) k/uL Monocytes # (0-1.0) k/uL Eosinophils # (0-0.7) k/uL Basophils # (0-0.2) k/uL PT 11.0 (10.0-12.5) sec INR 1.0 (<1.2) APTT 25.4 (22.0-30.0) sec Sodium (137-145) mmol/L Potassium (3.5-5.1) mmol/L Chloride (98-107) mmol/L Carbon Dioxide (22-30) mmol/L Anion Gap mmol/L BUN (7-17) mg/dL Creatinine (0.52-1.04) mg/dL Est GFR (CKD-EPI)AfAm (>60 ml/min/1.73 sqM) Est GFR (CKD-EPI)NonAf (>60 ml/min/1.73 sqM) Glucose (74-99) mg/dL Plasma Lactic Acid Issac 0.9 (0.7-2.0) mmol/L Calcium (8.4-10.2) mg/dL Total Bilirubin (0.2-1.3) mg/dL AST (14-36) U/L ALT (4-34) U/L Alkaline Phosphatase (38-126) U/L Troponin I <0.012 (0.000-0.034) ng/mL Total Protein (6.3-8.2) g/dL Albumin (3.5-5.0) g/dL TSH (0.465-4.680) mIU/L Urine Color Urine Appearance (Clear) Urine pH (5.0-8.0) Ur Specific [place] (1.001-1.035) Urine Protein (Negative) Urine Glucose (UA) (Negative) Urine Ketones (Negative) Urine Blood (Negative) Urine Nitrite (Negative) Urine Bilirubin (Negative) Urine Urobilinogen (<2.0) mg/dL Ur Leukocyte Esterase (Negative) Urine RBC (0-5) /hpf Urine WBC (0-5) /hpf Ur Squamous Epith Cells (0-4) /hpf Amorphous Sediment (None) /hpf Urine Mucus (None) /hpf 04/11/24 Range/Units 07:48 WBC (3.8-10.6) k/uL RBC (3.80-5.40) m/uL Hgb (11.4-16.0) gm/dL Hct (34.0-46.0) % MCV (80.0-100.0) fL MCH (25.0-35.0) pg MCHC (31.0-37.0) g/dL RDW (11.5-15.5) % Plt Count (150-450) k/uL MPV Neutrophils % % Lymphocytes % % Monocytes % % Eosinophils % % Basophils % % Neutrophils # (1.3-7.7) k/uL Lymphocytes # (1.0-4.8) k/uL Monocytes # (0-1.0) k/uL Eosinophils # (0-0.7) k/uL Basophils # (0-0.2) k/uL PT (10.0-12.5) sec INR (<1.2) APTT (22.0-30.0) sec Sodium (137-145) mmol/L Potassium (3.5-5.1) mmol/L Chloride (98-107) mmol/L Carbon Dioxide (22-30) mmol/L Anion Gap mmol/L BUN (7-17) mg/dL Creatinine (0.52-1.04) mg/dL Est GFR (CKD-EPI)AfAm (>60 ml/min/1.73 sqM) Est GFR (CKD-EPI)NonAf (>60 ml/min/1.73 sqM) Glucose (74-99) mg/dL Plasma Lactic Acid Issac (0.7-2.0) mmol/L Calcium (8.4-10.2) mg/dL Total Bilirubin (0.2-1.3) mg/dL AST (14-36) U/L ALT (4-34) U/L Alkaline Phosphatase (38-126) U/L Troponin I (0.000-0.034) ng/mL Total Protein (6.3-8.2) g/dL Albumin (3.5-5.0) g/dL TSH 1.530 (0.465-4.680) mIU/L Urine Color Urine Appearance (Clear) Urine pH (5.0-8.0) Ur Specific [place] (1.001-1.035) Urine Protein (Negative) Urine Glucose (UA) (Negative) Urine Ketones (Negative) Urine Blood (Negative) Urine Nitrite (Negative) Urine Bilirubin (Negative) Urine Urobilinogen (<2.0) mg/dL Ur Leukocyte Esterase (Negative) Urine RBC (0-5) /hpf Urine WBC (0-5) /hpf Ur Squamous Epith Cells (0-4) /hpf Amorphous Sediment (None) /hpf Urine Mucus (None) /hpf - EKG Data -: EKG Interpreted by Me EKG Comments: EKG taken at 6: 46 showing a sinus rhythm with no acute ST segment or T wave abnormalities. Ventricular rate 75, WA interval 156, QRS duration 85, QT/QTc 386/414. - Radiology Data Radiology results: report reviewed, image reviewed Disposition Clinical Impression: Dizziness, Hematuria Disposition: HOME SELF-CARE Condition: Stable Instructions (If sedation given, give patient instructions): Vertigo (ED) Additional Instructions: Please follow-up with specialist as scheduled. I recommend following up with primary care physician in the next 1 to 2 days. Return to the ER for any new or worsening concerns. Prescriptions: Meclizine [Antivert] 25 mg PO TID PRN #15 tab PRN Reason: Vertigo Is patient prescribed a controlled substance at d/c from ED?: No Referrals: Jose Byrd DO [Primary Care Provider] - 1-2 days Time of Disposition: 11:39
[2024-04-11 07:01] LABS: ALT 15 U/L (4-34); AST 25 U/L (14-36); African American GFR (CKD) >90 (>60 ml/min/1.73 sqM); Albumin 4.6 g/dL (3.5-5.0); Alkaline Phosphatase 72 U/L (38-126); Anion Gap 8 mmol/L; Blood Urea Nitrogen 20 mg/dL (7-17); Calcium 9.3 mg/dL (8.4-10.2); Carbon Dioxide 23 mmol/L (22-30); Chloride 108 mmol/L (98-107); Glucose 103 mg/dL (74-99); Non-African American GFR(CKD) 80 (>60 ml/min/1.73 sqM); Potassium 3.8 mmol/L (3.5-5.1); Sodium 139 mmol/L (137-145); Total Bilirubin 0.6 mg/dL (0.2-1.3); Total Protein 7.4 g/dL (6.3-8.2)
[2024-04-11 07:02] LABS: Amorphous Sediment,Urine Rare /hpf; Appearance,Urine Cloudy (Clear); Bilirubin,Urine Negative (Negative); Blood,Urine Moderate (Negative); Color,Urine Colorless; Glucose,Urine (UA) Negative (Negative); Ketones,Urine Negative (Negative); Leukocyte Esterase,Urine Moderate (Negative); Mucus,Urine Rare /hpf; Nitrite,Urine Negative (Negative); Protein,Urine Negative (Negative); RBC,Urine 15 /hpf (0-5); Specific Gravity,Urine 1.011 (1.001-1.035); Squamous Epithelial Cell,Urine 29 /hpf (0-4); Urobilinogen,Urine <2.0 mg/dL (<2.0); WBC,Urine 6 /hpf (0-5)
[2024-04-11] MEDS: ONDANSETRON 4 MG/2 ML VIAL IVP STA (07:52)
[2024-04-11] MEDS: SODIUM CHLORIDE 0.9% 1,000 ML IV STA (07:52)
[2024-04-11 07:58] VITALS: RESP 16
[2024-04-11 08:22] LABS: Partial Thromboplastin Time 25.4 sec (22.0-30.0)
[2024-04-11] MEDS: METOCLOPRAMIDE 5 MG/ML 2 ML VIAL IVP STA (09:54)
[2024-04-11] MEDS: MECLIZINE 12.5 MG TAB PO STA (09:59)
--- NOTE | 2024-04-11 11:29 | CT ---
EXAMINATION TYPE: CT angio head neck DATE OF EXAM: 04/11/2024 HISTORY: dizziness for one month COMPARISON: None. CT DLP: 1493.6 mGycm. Automated Exposure Control for Dose Reduction was Utilized. TECHNIQUE: CTA scan of the head and neck is performed with IV Contrast, patient injected with 65 mL of Isovue 370, axial images are obtained, coronal and sagittal reformatted images are reviewed. 3D re constructed images are created on an independent workstation and reviewed. FINDINGS: Carotid/Vascular Structures: Normal 3 vessel origins from aortic arch. No significant plaque or steno sis. Focal mild to moderate peripheral calcified plaque right carotid bulb without significant stenos is. No significant plaque left carotid bulb. No significant plaque or stenosis in the remainder of th e common or internal carotid arteries. Patent external carotid arteries bilaterally without significa nt stenosis. Vertebral arteries are continuous and codominant to the basilar junction. Patent bilater al posterior communicating arteries. Hypoplastic right P1 segment with filling right P2 segment due t o patent right posterior communicating artery. No aneurysm. Patent anterior communicating artery is i dentified. Mild to moderate peripheral calcified plaque in the distal internal carotid arteries bilat erally. No large vessel occlusion or aneurysm in the anterior circulation. Other: Noncontrast brain CT is unremarkable. Bilateral aphakia is seen. Mild emphysematous change in the lung apices. Mild disc space narrowing at C5-C6 and C6-C7 levels. IMPRESSION: No significant abnormality is seen to account for patient's symptoms. No hemodynamically significant stenosis or aneurysm identified. NASCET criteria was used in interpretation of this exam?
[2024-04-11 12:20] VITALS: BP 112/77; PULSE 78; TEMP 98.7
== END 2024-04-11 12:15 | disposition home or self-care (01) ==
LOC: EC 06:07
DX: R42 Dizziness and giddiness (principal); R31.9 Hematuria, unspecified
CPT/HCPCS: 36415; 93005; 80053; 84443; 83605; 84484; 85025; 85610; 85730; 81001; 70496; 70498; 99284; 96374; 96375; 96361; J2765; J2405; Q9967

== ENCOUNTER → 2024-04-19 | Outpatient (CLI) | payer MEDICARE ==
--- NOTE | 2024-04-19 14:40 | US ---
EXAMINATION TYPE: US thyroid st tissue head/neck DATE OF EXAM: 04/19/2024 COMPARISON: NONE CLINICAL INDICATION: Female, 68 years old with history of E04.1 NONTOXIC SINGLE THYROID NODULE; GLAND SIZE: Right Lobe: 3.5 x 1.6 x 1.5 cm Overall Parenchyma: heterogeneous Left Lobe: 2.9 x 1.2 x 1.2 cm Overall Parenchyma: heterogeneous Isthmus Thickness: 0.1 cm NODULES RIGHT: # of nodules measured on right: 0 LEFT: # of nodules measured on left: 0 ISTHMUS: # of nodules measured in the isthmus: 0 Bilateral neck scanned, no evidence of lymphadenopathy. IMPRESSION: 1. No thyromegaly. 2. Homogeneous thyroid without thyroid nodules 2017 ACR TI-RADS LEVEL: 0 *Highest TI-RADS level nodule reported
== END | disposition home or self-care (01) ==
LOC: RADUSWWP 13:45
PROVIDERS: ATTEND Internal Medicine Endocrinology, Diabetes & Metabolism
DX: E04.1 Nontoxic single thyroid nodule (principal); R22.0 Localized swelling, mass and lump, head
CPT/HCPCS: 76536

== ENCOUNTER 2024-05-13 07:18 | Emergency (ER) | payer MEDICARE ==
[2024-05-13 07:23] VITALS: TEMP 98.3
--- NOTE | 2024-05-13 07:42 | ED ---
General Adult HPI - General Chief complaint: Nausea/Vomiting/Diarrhea Stated complaint: Dizziness Time Seen by Provider: 05/13/24 07:20 Source: patient, family, RN notes reviewed, old records reviewed Mode of arrival: ambulatory Limitations: no limitations - History of Present Illness Initial comments: This is a 68-year-old female who presents to the emergency department stating since February she has been nauseous and vomiting. Patient states she vomits almost every day. Patient states has been worked up in the emergency department multiple times and seeing her doctor. Patient states she has an endoscopy scheduled for the later in May. Patient denies any abdominal pain patient denies any fever or chills. Patient has any dysuria hematuria urinary frequency. Patient states the vomiting does not occur only when she eats that occurs at any given time. Patient states when she comes to the emergency department the Zofran and Reglan help at home they do not seem to help. Patient does state she retired in March and that was very anxiety provoking and she does have a history of anxiety. Patient states she was just started on Lexapro last week. - Related Data Home Medications Medication Instructions Recorded Confirmed Naltrexone HCl [Naltrex] 4.5 mg PO HS 03/14/24 04/11/24 Progesterone, Micronized 100 mg PO HS 03/14/24 04/11/24 [Progesterone] estradioL [Vivelle-Dot 0.0375 MG] 1 patch TOPICAL WESA 03/14/24 04/11/24 Previous Rx's Medication Instructions Recorded Meclizine [Antivert] 25 mg PO TID PRN #15 tab 04/11/24 Allergies Allergy/AdvReac Type Severity Reaction Status Date / Time No Known Allergies Allergy Verified 04/11/24 11:04 Review of Systems ROS Statement: Those systems with pertinent positive or pertinent negative responses have been documented in the HPI. ROS Other: All systems not noted in ROS Statement are negative. Past Medical History Past Medical History: Hyperlipidemia, Thyroid Disorder History of Any Multi-Drug Resistant Organisms: None Reported Past Surgical History: Orthopedic Surgery, Tonsillectomy Additional Past Surgical History / Comment(s): ganglian cyst left wrist, plates rt leg Past Psychological History: No Psychological Hx Reported Smoking Status: Never smoker Past Alcohol Use History: Occasional Past Drug Use History: None Reported General Exam - General Exam Comments Initial Comments: GENERAL: Patient is well-developed and well-nourished. Patient is nontoxic and well- hydrated and is in mild distress. ENT: Neck is soft and supple. No significant lymphadenopathy is noted. Oropharynx is clear. Moist mucous membranes. Neck has full range of motion without eliciting any pain. EYES: The sclera were anicteric and conjunctiva were pink and moist. Extraocular movements were intact and pupils were equal round and reactive to light. Eyelids were unremarkable. PULMONARY: Unlabored respirations. Good breath sounds bilaterally. No audible rales rhonchi or wheezing was noted. CARDIOVASCULAR: There is a regular rate and rhythm without any murmurs gallops or rubs. ABDOMEN: Soft and nontender with normal bowel sounds. SKIN: Skin is clear with no lesions or rashes and otherwise unremarkable. NEUROLOGIC: Patient is alert and oriented x3. Cranial nerves II through XII are grossly intact. Motor and sensory are also intact. Normal speech, volume and content. Symmetrical smile. MUSCULOSKELETAL: Normal extremities with adequate strength and full range of motion. No lower extremity swelling or edema. No calf tenderness. LYMPHATICS: No significant lymphadenopathy is noted PSYCHIATRIC: Normal psychiatric evaluation. Limitations: no limitations Course Vital Signs 05/13/24 05/13/24 07:19 08:16 Temperature 98.3 F Pulse Rate 84 64 Respiratory 16 18 Rate Blood Pressure 127/85 131/85 O2 Sat by Pulse 98 97 Oximetry Medical Decision Making - Medical Decision Making Was pt. sent in by a medical professional or institution (JAQUELINE Aguirre, [employer], urgent care, hospital, or long-term...) When possible be specific @ -No Did you speak to anyone other than the patient for history (EMS, parent, family, police, friend...)? What history was obtained from this source @ -No Did you review nursing and triage notes (agree or disagree)? Why? @ -I reviewed and agree with nursing and triage notes Were old charts reviewed (outside hosp., previous admission, EMS record, old EKG, old radiological studies, urgent care reports/EKG's, long-term records)? Report findings @ -No old charts were reviewed Differential Diagnosis? @ -Gastritis, gastroenteritis, acute vomiting, viral syndrome, this is not an all-inclusive list EKG interpreted by me (3pts min.). @ -As above X-rays interpreted by me (1pt min.). @ -None done CT interpreted by me (1pt min.). @ -None done U/S interpreted by me (1pt. min.). @ -None done What testing was considered but not performed or refused? (CT, X-rays, U/S, labs)? Why? @ -None What meds were considered but not given or refused? Why? @ -None Did you discuss the management of the patient with other professionals (professionals i.e. DrMelissa, PA, [employer], lab, RT, psych nurse, web content & social media manager, screening unit registered nurse, teacher, protective services officer, window caser)? Give summary @ -No Was smoking cessation discussed for >3mins.? @ -No Was critical care preformed (if so, how long)? @ -No Were there social determinants of health that impacted care today? How? (Homelessness, low income, unemployed, alcoholism, drug addiction, transportation, low edu. Level, literacy, decrease access to med. care, group home, rehab)? @ -No Was there de-escalation of care discussed even if they declined (Discuss DNR or withdrawal of care, Hospice)? DNR status @ -No What co-morbidities impacted this encounter? (DM, HTN, Smoking, COPD, CAD, Cancer, CVA, ARF, Chemo, Hep., AIDS, mental health diagnosis, sleep apnea, morbid obesity)? @ -None Was patient admitted / discharged? Hospital course, mention meds given and route, prescriptions, significant lab abnormalities, going to OR and other pertinent info. @ -Patient was given Zofran and fluids and was feeling considerably better. Patient will follow-up with urology as directed because of the hematuria. Undiagnosed new problem with uncertain prognosis? @ -No Drug Therapy requiring intensive monitoring for toxicity (Heparin, Nitro, Insulin, Cardizem)? @ -No Were any procedures done? @ -No Diagnosis/symptom? @ -Hematuria Acute, or Chronic, or Acute on Chronic? @ -Acute Uncomplicated (without systemic symptoms) or Complicated (systemic symptoms)? @ -Complicated Side effects of treatment? @ -No Exacerbation, Progression, or Severe Exacerbation? @ -No Poses a threat to life or bodily function? How? (Chest pain, [place], [place], pneumonia, PE, COPD, DKA, ARF, appy, cholecystitis, CVA, Diverticulitis, Homicidal, Suicidal, threat to staff... and all critical care pts) @ -No Diagnosis/symptom? @ -Acute vomiting Acute, or Chronic, or Acute on Chronic? @ -Acute Uncomplicated (without systemic symptoms) or Complicated (systemic symptoms)? @ -Uncomplicated Side effects of treatment? @ -None Exacerbation, Progression, or Severe Exacerbation] @ -No Poses a threat to life or bodily function? @ -No - Lab Data Result diagrams: 05/13/24 08:00 05/13/24 08:00 Lab Results 05/13/24 05/13/24 05/13/24 Range/Units 08:00 08:00 08:00 WBC 7.1 (3.8-10.6) k/uL RBC 4.90 (3.80-5.40) m/uL Hgb 14.9 (11.4-16.0) gm/dL Hct 44.9 (34.0-46.0) % MCV 91.6 (80.0-100.0) fL MCH 30.4 (25.0-35.0) pg MCHC 33.2 (31.0-37.0) g/dL RDW 13.0 (11.5-15.5) % Plt Count 145 L (150-450) k/uL MPV 8.6 Neutrophils % 67 % Lymphocytes % 21 % Monocytes % 7 % Eosinophils % 1 % Basophils % 2 % Neutrophils # 4.8 (1.3-7.7) k/uL Lymphocytes # 1.5 (1.0-4.8) k/uL Monocytes # 0.5 (0-1.0) k/uL Eosinophils # 0.1 (0-0.7) k/uL Basophils # 0.1 (0-0.2) k/uL Sodium 138 (137-145) mmol/L Potassium 4.0 (3.5-5.1) mmol/L Chloride 107 (98-107) mmol/L Carbon Dioxide 23 (22-30) mmol/L Anion Gap 8 mmol/L BUN 15 (7-17) mg/dL Creatinine 0.79 (0.52-1.04) mg/dL Est GFR (CKD-EPI)AfAm >90 (>60 ml/min/1.73 sqM) Est GFR (CKD-EPI)NonAf 79 (>60 ml/min/1.73 sqM) Glucose 100 H (74-99) mg/dL Calcium 9.5 (8.4-10.2) mg/dL Total Bilirubin 0.8 (0.2-1.3) mg/dL AST 22 (14-36) U/L ALT 13 (4-34) U/L Alkaline Phosphatase 57 (38-126) U/L Total Protein 7.1 (6.3-8.2) g/dL Albumin 4.3 (3.5-5.0) g/dL Amylase 52 (30-110) U/L Lipase 71 (23-300) U/L Urine Color Colorless Urine Appearance Clear (Clear) Urine pH 6.5 (5.0-8.0) Ur Specific [place] 1.010 (1.001-1.035) Urine Protein Negative (Negative) Urine Glucose (UA) Negative (Negative) Urine Ketones Trace H (Negative) Urine Blood Small H (Negative) Urine Nitrite Negative (Negative) Urine Bilirubin Negative (Negative) Urine Urobilinogen <2.0 (<2.0) mg/dL Ur Leukocyte Esterase Negative (Negative) Urine RBC 13 H (0-5) /hpf Urine WBC <1 (0-5) /hpf Ur Squamous Epith Cells 1 (0-4) /hpf Urine Mucus Rare H (None) /hpf Urine Opiates Screen (NotDetected) Ur Oxycodone Screen (NotDetected) Urine Methadone Screen (NotDetected) Ur Barbiturates Screen (NotDetected) U Tricyclic Antidepress (NotDetected) Ur Phencyclidine Scrn (NotDetected) Ur Amphetamines Screen (NotDetected) U Methamphetamines Scrn (NotDetected) U Benzodiazepines Scrn (NotDetected) Urine Cocaine Screen (NotDetected) U Marijuana (THC) Screen (NotDetected) 05/13/24 Range/Units 08:00 WBC (3.8-10.6) k/uL RBC (3.80-5.40) m/uL Hgb (11.4-16.0) gm/dL Hct (34.0-46.0) % MCV (80.0-100.0) fL MCH (25.0-35.0) pg MCHC (31.0-37.0) g/dL RDW (11.5-15.5) % Plt Count (150-450) k/uL MPV Neutrophils % % Lymphocytes % % Monocytes % % Eosinophils % % Basophils % % Neutrophils # (1.3-7.7) k/uL Lymphocytes # (1.0-4.8) k/uL Monocytes # (0-1.0) k/uL Eosinophils # (0-0.7) k/uL Basophils # (0-0.2) k/uL Sodium (137-145) mmol/L Potassium (3.5-5.1) mmol/L Chloride (98-107) mmol/L Carbon Dioxide (22-30) mmol/L Anion Gap mmol/L BUN (7-17) mg/dL Creatinine (0.52-1.04) mg/dL Est GFR (CKD-EPI)AfAm (>60 ml/min/1.73 sqM) Est GFR (CKD-EPI)NonAf (>60 ml/min/1.73 sqM) Glucose (74-99) mg/dL Calcium (8.4-10.2) mg/dL Total Bilirubin (0.2-1.3) mg/dL AST (14-36) U/L ALT (4-34) U/L Alkaline Phosphatase (38-126) U/L Total Protein (6.3-8.2) g/dL Albumin (3.5-5.0) g/dL Amylase (30-110) U/L Lipase (23-300) U/L Urine Color Urine Appearance (Clear) Urine pH (5.0-8.0) Ur Specific [place] (1.001-1.035) Urine Protein (Negative) Urine Glucose (UA) (Negative) Urine Ketones (Negative) Urine Blood (Negative) Urine Nitrite (Negative) Urine Bilirubin (Negative) Urine Urobilinogen (<2.0) mg/dL Ur Leukocyte Esterase (Negative) Urine RBC (0-5) /hpf Urine WBC (0-5) /hpf Ur Squamous Epith Cells (0-4) /hpf Urine Mucus (None) /hpf Urine Opiates Screen Not Detected (NotDetected) Ur Oxycodone Screen Not Detected (NotDetected) Urine Methadone Screen Not Detected (NotDetected) Ur Barbiturates Screen Not Detected (NotDetected) U Tricyclic Antidepress Not Detected (NotDetected) Ur Phencyclidine Scrn Not Detected (NotDetected) Ur Amphetamines Screen Not Detected (NotDetected) U Methamphetamines Scrn Not Detected (NotDetected) U Benzodiazepines Scrn Not Detected (NotDetected) Urine Cocaine Screen Not Detected (NotDetected) U Marijuana (THC) Screen Not Detected (NotDetected) Disposition Clinical Impression: Acute vomiting, Hematuria Disposition: HOME SELF-CARE Condition: Good Instructions (If sedation given, give patient instructions): Acute Nausea and Vomiting (ED) Is patient prescribed a controlled substance at d/c from ED?: No Referrals: Shay Wesley MD [STAFF PHYSICIAN] - 1-2 days Time of Disposition: 08:58
[2024-05-13] MEDS: SODIUM CHLORIDE 0.9% 1,000 ML IV STA (08:06)
[2024-05-13] MEDS: ONDANSETRON 4 MG/2 ML VIAL IVP STA (08:07)
[2024-05-13] MEDS: SODIUM CHLORIDE 0.9% 500 ML 500 ML IV STA (08:11)
[2024-05-13 08:12] LABS: Basophils # (A) 0.1 k/uL (0-0.2); Basophils % (A) 2 %; Eosinophils # (A) 0.1 k/uL (0-0.7); Eosinophils % (A) 1 %; HCT 44.9 % (34.0-46.0); HGB 14.9 gm/dL (11.4-16.0); Lymphocytes # (A) 1.5 k/uL (1.0-4.8); Lymphocytes % (A) 21 %; MCH 30.4 pg (25.0-35.0); MCHC 33.2 g/dL (31.0-37.0); MCV 91.6 fL (80.0-100.0); Mean Platelet Volume 8.6; Monocytes # (A) 0.5 k/uL (0-1.0); Monocytes % (A) 7 %; Neutrophils # (A) 4.8 k/uL (1.3-7.7); Neutrophils % (A) 67 %; Platelet Count 145 k/uL (150-450); WBC 7.1 k/uL (3.8-10.6)
[2024-05-13 08:17] VITALS: BP 131/85; PULSE 64; RESP 18
[2024-05-13 08:24] LABS: ALT 13 U/L (4-34); AST 22 U/L (14-36); African American GFR (CKD) >90 (>60 ml/min/1.73 sqM); Albumin 4.3 g/dL (3.5-5.0); Alkaline Phosphatase 57 U/L (38-126); Amylase 52 U/L (30-110); Anion Gap 8 mmol/L; Blood Urea Nitrogen 15 mg/dL (7-17); Calcium 9.5 mg/dL (8.4-10.2); Carbon Dioxide 23 mmol/L (22-30); Chloride 107 mmol/L (98-107); Glucose 100 mg/dL (74-99); Lipase 71 U/L (23-300); Non-African American GFR(CKD) 79 (>60 ml/min/1.73 sqM); Sodium 138 mmol/L (137-145); Total Bilirubin 0.8 mg/dL (0.2-1.3); Total Protein 7.1 g/dL (6.3-8.2)
[2024-05-13 08:40] LABS: Appearance,Urine Clear (Clear); Bilirubin,Urine Negative (Negative); Blood,Urine Small (Negative); Color,Urine Colorless; Glucose,Urine (UA) Negative (Negative); Ketones,Urine Trace (Negative); Leukocyte Esterase,Urine Negative (Negative); Mucus,Urine Rare /hpf; Nitrite,Urine Negative (Negative); PH, Urine 6.5 (5.0-8.0); Protein,Urine Negative (Negative); RBC,Urine 13 /hpf (0-5); Squamous Epithelial Cell,Urine 1 /hpf (0-4); Urobilinogen,Urine <2.0 mg/dL (<2.0); WBC,Urine <1 /hpf (0-5)
[2024-05-13 08:44] LABS: Amphetamine Screen,Urine Not Detected (NotDetected); Barbiturate Screen,Urine Not Detected (NotDetected); Benzodiazepines Screen,Urine Not Detected (NotDetected); Cocaine Screen,Urine Not Detected (NotDetected); Methadone Screen, Urine Not Detected (NotDetected); Opiate Screen,Urine Not Detected (NotDetected); Oxycodone Screen, Urine Not Detected (NotDetected); Phencyclidine Screen,Urine Not Detected (NotDetected); Tricyclic Antidepressant,Urine Not Detected (NotDetected); Urn Cannabinoid Scrn Not Detected (NotDetected)
== END 2024-05-13 09:00 | disposition home or self-care (01) ==
LOC: EC 07:18
DX: R31.9 Hematuria, unspecified (principal); R11.2 Nausea with vomiting, unspecified
CPT/HCPCS: 36415; 80053; 82150; 83690; 85025; 81001; 80306; 99284; 96374; 96361; J2405